=== PATIENT | male | born 1945 | race Caucasian/White ===

== ENCOUNTER 2020-09-08 16:15 | Inpatient (IN) | payer MEDICARE, BC ==
[~2020-09-08] VITALS: Ht 182.9 cm; Wt 78.1 kg
[~2020-09-08 16:15] MED LIST: AMLO-186 PO; ASPI-630 PO; DONE5TAB7 PO; GABA100C81 PO; LISI10TA16 PO; LOPE-101 PO; ROPI0.5T4 PO; SERT25TA PO
[2020-09-08] MEDS ORDERED: MAGNESIUM HYDROXIDE 2,400 MG/30 ML ORAL.SUSP. PO PRN (18:30)
[2020-09-08] MEDS ORDERED: NICOTINE 7MG PATCH. TD PRN (18:30)
[2020-09-08] MEDS ORDERED: MAG HYDROX/AL HYDROX/SIMETH 30 ML ORAL.SUSP PO PRN (18:30)
[2020-09-08] MEDS ORDERED: METHYL SALICYLATE/MENTHOL TOPICAL OINTMENT 57GM TUBE. TP PRN (18:30)
[2020-09-08] MEDS ORDERED: ACETAMINOPHEN 325 MG TABLET PO PRN (18:30)
[2020-09-08 19:02] VITALS: BP 167/68
[2020-09-08] MEDS: rOPINIRole 0.5 MG TABLET. PO SCH (20:08)
[2020-09-08] MEDS: GABAPENTIN 100 MG CAPSULE. PO SCH (20:09)
[2020-09-08] MEDS: DONEPEZIL HCL 5 MG TABLET. PO SCH (20:09)
--- NOTE | 2020-09-08 22:03 | PDOC ---
Exam Note: Raman Note: Please also refer to the separate dictated note~for this date of service dictated separately.~Patient seen individually. Discussed the patient with Nursing staff reviewed the chart.~Reviewed interim history and current functioning. Reviewed vital signs,~Labs/ Radiology~and current medications noted below. Continue current treatment with the changes noted in the dictated addendum note Assessment: Vital Signs/I&O: Vital Signs Date Time Temp Pulse Resp B/P (MAP) Pulse Ox O2 Delivery O2 Flow Rate FiO2 09/08/20 19:02 97.8 60 20 167/68 (101) 97 Current Medications: Meds: Current Medications Medications (Trade) Dose Ordered Sig/Eva Route PRN Reason Start Time Stop Time Status Last Admin Dose Admin Donepezil HCl (Aricept) 5 mg HS PO 09/08/20 21:00 09/08/20 20:09 Gabapentin (Neurontin) 100 mg TID PO 09/08/20 21:00 09/08/20 20:09 Ropinirole HCl (Requip) 0.5 mg HS PO 09/08/20 21:00 09/08/20 20:08 I have reviewed the current psychotropics carefully including drug interactions. Risk benefit ratio favors no change other than as noted in my dictated progress note. LUISANA WAGNER MD Sep 08, 2020 22:03
[2020-09-08] MEDS ORDERED: NICOTINE POLACRILEX GUM 2 MG GUM. BC PRN (22:15)
[2020-09-09 05:25] VITALS: BP 183/76
[2020-09-09] MEDS: GABAPENTIN 100 MG CAPSULE. PO SCH ×3 (08:06→20:51)
[2020-09-09] MEDS: SERTRALINE 25 MG TABLET. PO SCH (08:06)
[2020-09-09] MEDS: LISINOPRIL 10 MG TABLET PO SCH (08:06)
[2020-09-09] MEDS: ASPIRIN CHEWABLE 81 MG TABLET. PO SCH (08:06)
[2020-09-09] MEDS: amLODIPine BESYLATE 5 MG TABLET PO SCH (08:09)
[2020-09-09 12:42] LABS: THYROID STIM HORMONE (TSH) 1.63 uIU/mL (0.358-3.740)
[2020-09-09 15:54] VITALS: BP 177/68
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
[2020-09-09] MEDS: rOPINIRole 0.5 MG TABLET. PO SCH (20:51)
[2020-09-09] MEDS: DIVALPROEX ER 500 MG TAB.ER.24H PO SCH (20:51)
[2020-09-09] MEDS: DONEPEZIL HCL 5 MG TABLET. PO SCH (20:52)
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
--- NOTE | 2020-09-09 22:04 | PDOC ---
Exam Note: Raman Note: Please also refer to the separate dictated note~for this date of service dictated separately.~Patient seen individually. Discussed the patient with Nursing staff reviewed the chart.~Reviewed interim history and current functioning. Reviewed vital signs,~Labs/ Radiology~and current medications noted below. Continue current treatment with the changes noted in the dictated addendum note Assessment: Vital Signs/I&O: Vital Signs Date Time Temp Pulse Resp B/P (MAP) Pulse Ox O2 Delivery O2 Flow Rate FiO2 09/09/20 15:54 97.1 60 18 177/68 (104) 97 Room Air I & O 09/08/20 09/08/20 09/09/20 14:59 22:59 06:59 Intake Total 720 ml Balance 720 ml Labs: Laboratory Tests Test 09/09/20 07:28 D-Dimer (Iliana) 1.00 mg/L (0.00-0.50) H Magnesium Level 2.1 mg/dL (1.8-2.4) Iron Level 132 ug/dL (65-175) Total Iron Binding Capacity 337 ug/dL (250-450) Iron Saturation 39 % (15-34) H Triglycerides Level 129 mg/dL (0-150) Cholesterol Level 139 mg/dL (0-200) LDL Cholesterol, Calculated 67 mg/dL (0-100) VLDL Cholesterol, Calculated 25 mg/dL (0-40) Non-HDL Cholesterol Calculated 92 mg/dL (0-129) HDL Cholesterol 47 mg/dL (40-60) Cholesterol/HDL Ratio 2.0 Thyroid Stimulating Hormone (TSH) 1.630 uIU/mL (0.358-3.740) Current Medications: Meds: Current Medications Medications (Trade) Dose Ordered Sig/Eva Route PRN Reason Start Time Stop Time Status Last Admin Dose Admin Amlodipine Besylate (Norvasc) 5 mg DAILY PO 09/09/20 09:00 09/09/20 08:09 Aspirin (Aspirin Chewable) 81 mg DAILY PO 09/09/20 09:00 09/09/20 08:06 Lisinopril (Prinivil) 10 mg DAILY PO 09/09/20 09:00 09/09/20 08:06 Sertraline HCl (Zoloft) 25 mg DAILY PO 09/09/20 09:00 09/09/20 08:06 Divalproex Sodium (Depakote Er) 500 mg QHS PO 09/09/20 21:00 09/09/20 20:51 I have reviewed the current psychotropics carefully including drug interactions. Risk benefit ratio favors no change other than as noted in my dictated progress note. Diagnosis: Problems: (1) Major depressive disorder with psychotic features (2) Impulse control disorder, unspecified LUISANA WAGNER MD Sep 09, 2020 22:03
[2020-09-10 02:31] LABS: THYROXINE 7.5 ug/dL (4.5-12.0)
[2020-09-10 05:39] LABS: HEMOGLOBIN A1C 5.5 % (4.8-5.6)
[2020-09-10 05:45] VITALS: BP 167/68
[2020-09-10] MEDS: ASPIRIN CHEWABLE 81 MG TABLET. PO SCH (08:02)
[2020-09-10] MEDS: GABAPENTIN 100 MG CAPSULE. PO SCH ×3 (08:02→20:23)
[2020-09-10] MEDS: amLODIPine BESYLATE 5 MG TABLET PO SCH (08:02)
[2020-09-10] MEDS: SERTRALINE 25 MG TABLET. PO SCH (08:02)
[2020-09-10] MEDS: LISINOPRIL 10 MG TABLET PO SCH (08:02)
--- NOTE | 2020-09-10 08:47 | PDOC ---
Exam Note: Raman Note: This is an addendum to Initial Psychiatric Evaluation to correct the error under dictation #[id number]. Correct date of service and admission is 09/08/2020 and date of dictation 09/09/2020. Assessment: Vital Signs/I&O: Vital Signs Date Time Temp Pulse Resp B/P (MAP) Pulse Ox O2 Delivery O2 Flow Rate FiO2 09/10/20 08:02 61 167/68 09/10/20 05:45 97.9 14 98 Room Air I & O 09/09/20 09/09/20 09/10/20 15:00 23:00 07:00 Intake Total 600 ml 600 ml Balance 600 ml 600 ml Current Medications: Meds: Current Medications Medications (Trade) Dose Ordered Sig/Eva Route PRN Reason Start Time Stop Time Status Last Admin Dose Admin Amlodipine Besylate (Norvasc) 5 mg DAILY PO 09/09/20 09:00 09/10/20 08:02 Aspirin (Aspirin Chewable) 81 mg DAILY PO 09/09/20 09:00 09/10/20 08:02 Donepezil HCl (Aricept) 5 mg HS PO 09/08/20 21:00 09/09/20 20:52 Gabapentin (Neurontin) 100 mg TID PO 09/08/20 21:00 09/10/20 08:02 Lisinopril (Prinivil) 10 mg DAILY PO 09/09/20 09:00 09/10/20 08:02 Loperamide HCl (Imodium) 2 mg PRN Q2HRS PRN PO DIARRHEA 09/08/20 18:30 Ropinirole HCl (Requip) 0.5 mg HS PO 09/08/20 21:00 09/09/20 20:51 Sertraline HCl (Zoloft) 25 mg DAILY PO 09/09/20 09:00 09/10/20 08:02 Acetaminophen (Tylenol) 650 mg PRN Q6HRS PRN PO MILD PAIN / TEMP > 100.3'F 09/08/20 18:30 Multi-Ingredient Ointment (Analgesic [place]) 1 keerthi PRN QID PRN TP MUSCLE PAIN 09/08/20 18:30 Al Hydroxide/Mg Hydroxide (Mylanta Plus Xs) 15 ml PRN AFTMEALHC PRN PO DYSPEPSIA 09/08/20 18:30 Magnesium Hydroxide (Milk Of Magnesia) 2,400 mg PRN QHS PRN PO CONSTIPATION 09/08/20 18:30 Nicotine (Nicoderm Cq 7mg Patch) 1 patch DAILY PRN TD SMOKING CESSATION 09/08/20 18:30 09/08/20 22:07 DC Nicotine Polacrilex (Nicorette Gum) 2 mg PRN Q1HR PRN BC SMOKING CESSATION 09/08/20 22:15 Divalproex Sodium (Depakote Er) 500 mg QHS PO 09/09/20 21:00 09/09/20 20:51 Current Medications Medications (Trade) Dose Ordered Sig/Eva Route PRN Reason Start Time Stop Time Status Last Admin Dose Admin Amlodipine Besylate (Norvasc) 5 mg DAILY PO 09/09/20 09:00 09/10/20 08:02 Aspirin (Aspirin Chewable) 81 mg DAILY PO 09/09/20 09:00 09/10/20 08:02 Lisinopril (Prinivil) 10 mg DAILY PO 09/09/20 09:00 09/10/20 08:02 Sertraline HCl (Zoloft) 25 mg DAILY PO 09/09/20 09:00 09/10/20 08:02 Divalproex Sodium (Depakote Er) 500 mg QHS PO 09/09/20 21:00 09/09/20 20:51 I have reviewed the current psychotropics carefully including drug interactions. Risk benefit ratio favors no change other than as noted in my dictated progress note. Diagnosis: Problems: (1) Impulse control disorder, unspecified (2) Major depressive disorder with psychotic features (3) Intermittent explosive disorder LUISANA WAGNER MD Sep 10, 2020 08:47
--- NOTE | 2020-09-10 09:03 | PDOC ---
Exam Note: Raman Note: This note is a late entry for 09/09/2020 covers elements not covered in my initial note. Subjective: The patient was seen individually in the evening of 09/09/2020 with Doreen DANIEL, discussed and reviewed the chart. He slept 6-3/4 hours previous night. The patient remains anxious, wanting to be discharged. Nursing staff have addressed this with him and so have I about reasons prompting admission that we are initiating changes in his psychotropics to assist with his marked mood lability and he was agreeable to it. Review of Systems: Gait unsteady with walker. No CV, , pulmonary, eye system symptoms on review. Mental Status Exam: The patient is reasonably oriented. Speech is coherent. Abstraction fair. Computation impaired. Language function intact. Attention span short. Mood and affect somewhat anxious, labile but improved. Laboratory Data: Reviewed. Impression: Intermittent explosive disorder. Major depressive disorder. Anxiety disorder unspecified. Plan: Start Depakote ER 500 mg p.o. h.s. Check CBC, CMP, valproic acid level in 3 days. Maintain Neurontin, ReQuip, Aricept, and Zoloft unchanged for now. We may consider increasing Zoloft in due course. Assessment: Vital Signs/I&O: Vital Signs Date Time Temp Pulse Resp B/P (MAP) Pulse Ox O2 Delivery O2 Flow Rate FiO2 09/10/20 08:02 61 167/68 09/10/20 05:45 97.9 14 98 Room Air I & O 09/09/20 09/09/20 09/10/20 14:59 22:59 06:59 Intake Total 600 ml 600 ml Balance 600 ml 600 ml Current Medications: Meds: Current Medications Medications (Trade) Dose Ordered Sig/Eva Route PRN Reason Start Time Stop Time Status Last Admin Dose Admin Amlodipine Besylate (Norvasc) 5 mg DAILY PO 09/09/20 09:00 09/10/20 08:02 Aspirin (Aspirin Chewable) 81 mg DAILY PO 09/09/20 09:00 09/10/20 08:02 Donepezil HCl (Aricept) 5 mg HS PO 09/08/20 21:00 09/09/20 20:52 Gabapentin (Neurontin) 100 mg TID PO 09/08/20 21:00 09/10/20 08:02 Lisinopril (Prinivil) 10 mg DAILY PO 09/09/20 09:00 09/10/20 08:02 Loperamide HCl (Imodium) 2 mg PRN Q2HRS PRN PO DIARRHEA 09/08/20 18:30 Ropinirole HCl (Requip) 0.5 mg HS PO 09/08/20 21:00 09/09/20 20:51 Sertraline HCl (Zoloft) 25 mg DAILY PO 09/09/20 09:00 09/10/20 08:02 Acetaminophen (Tylenol) 650 mg PRN Q6HRS PRN PO MILD PAIN / TEMP > 100.3'F 09/08/20 18:30 Multi-Ingredient Ointment (Analgesic [place]) 1 keerthi PRN QID PRN TP MUSCLE PAIN 09/08/20 18:30 Al Hydroxide/Mg Hydroxide (Mylanta Plus Xs) 15 ml PRN AFTMEALHC PRN PO DYSPEPSIA 09/08/20 18:30 Magnesium Hydroxide (Milk Of Magnesia) 2,400 mg PRN QHS PRN PO CONSTIPATION 09/08/20 18:30 Nicotine (Nicoderm Cq 7mg Patch) 1 patch DAILY PRN TD SMOKING CESSATION 09/08/20 18:30 09/08/20 22:07 DC Nicotine Polacrilex (Nicorette Gum) 2 mg PRN Q1HR PRN BC SMOKING CESSATION 09/08/20 22:15 Divalproex Sodium (Depakote Er) 500 mg QHS PO 09/09/20 21:00 09/09/20 20:51 Current Medications Medications (Trade) Dose Ordered Sig/Eva Route PRN Reason Start Time Stop Time Status Last Admin Dose Admin Divalproex Sodium (Depakote Er) 500 mg QHS PO 09/09/20 21:00 09/09/20 20:51 I have reviewed the current psychotropics carefully including drug interactions. Risk benefit ratio favors no change other than as noted in my dictated progress note. Diagnosis: Problems: (1) Impulse control disorder, unspecified (2) Major depressive disorder with psychotic features (3) Intermittent explosive disorder LUISANA WAGNER MD Sep 10, 2020 09:03
[2020-09-10 15:19] VITALS: BP 137/70
[2020-09-10] MEDS: DONEPEZIL HCL 5 MG TABLET. PO SCH (20:23)
[2020-09-10] MEDS: rOPINIRole 0.5 MG TABLET. PO SCH (20:23)
[2020-09-10] MEDS: DIVALPROEX ER 500 MG TAB.ER.24H PO SCH (20:23)
--- NOTE | 2020-09-10 22:05 | PDOC ---
Exam Note: Raman Note: Please also refer to the separate dictated note~for this date of service dictated separately.~Patient seen individually. Discussed the patient with Nursing staff reviewed the chart.~Reviewed interim history and current functioning. Reviewed vital signs,~Labs/ Radiology~and current medications noted below. Continue current treatment with the changes noted in the dictated addendum note Assessment: Vital Signs/I&O: Vital Signs Date Time Temp Pulse Resp B/P (MAP) Pulse Ox O2 Delivery O2 Flow Rate FiO2 09/10/20 15:19 98.0 62 20 137/70 (92) 98 09/10/20 05:45 Room Air I & O 09/09/20 09/09/20 09/10/20 15:00 23:00 07:00 Intake Total 600 ml 600 ml Balance 600 ml 600 ml Current Medications: Meds: Current Medications Medications (Trade) Dose Ordered Sig/Eva Route PRN Reason Start Time Stop Time Status Last Admin Dose Admin Amlodipine Besylate (Norvasc) 5 mg DAILY PO 09/09/20 09:00 09/10/20 08:02 Aspirin (Aspirin Chewable) 81 mg DAILY PO 09/09/20 09:00 09/10/20 08:02 Donepezil HCl (Aricept) 5 mg HS PO 09/08/20 21:00 09/10/20 20:23 Gabapentin (Neurontin) 100 mg TID PO 09/08/20 21:00 09/10/20 20:23 Lisinopril (Prinivil) 10 mg DAILY PO 09/09/20 09:00 09/10/20 08:02 Loperamide HCl (Imodium) 2 mg PRN Q2HRS PRN PO DIARRHEA 09/08/20 18:30 Ropinirole HCl (Requip) 0.5 mg HS PO 09/08/20 21:00 09/10/20 20:23 Sertraline HCl (Zoloft) 25 mg DAILY PO 09/09/20 09:00 09/10/20 08:02 Acetaminophen (Tylenol) 650 mg PRN Q6HRS PRN PO MILD PAIN / TEMP > 100.3'F 09/08/20 18:30 Multi-Ingredient Ointment (Analgesic [place]) 1 keerthi PRN QID PRN TP MUSCLE PAIN 09/08/20 18:30 Al Hydroxide/Mg Hydroxide (Mylanta Plus Xs) 15 ml PRN AFTMEALHC PRN PO DYSPEPSIA 09/08/20 18:30 Magnesium Hydroxide (Milk Of Magnesia) 2,400 mg PRN QHS PRN PO CONSTIPATION 09/08/20 18:30 Nicotine (Nicoderm Cq 7mg Patch) 1 patch DAILY PRN TD SMOKING CESSATION 09/08/20 18:30 09/08/20 22:07 DC Nicotine Polacrilex (Nicorette Gum) 2 mg PRN Q1HR PRN BC SMOKING CESSATION 09/08/20 22:15 Divalproex Sodium (Depakote Er) 500 mg QHS PO 09/09/20 21:00 09/10/20 20:23 I have reviewed the current psychotropics carefully including drug interactions. Risk benefit ratio favors no change other than as noted in my dictated progress note. Diagnosis: Problems: (1) Violent behavior (2) Impulse control disorder, unspecified (3) Major depressive disorder with psychotic features LUISANA WAGNER MD Sep 10, 2020 22:05
[2020-09-11 06:03] VITALS: BP 159/65
--- NOTE | 2020-09-11 08:35 | PDOC ---
Exam Note: Raman Note: This note is a late entry for 09/10/2020 covers elements not covered in my initial note. Subjective: The patient was seen individually in the evening of 09/10/2020 with Idalia DANIEL, discussed and reviewed the chart. He slept 8-1/2 hours previous night. Overall the patient has been calm, pleasant, compliant with his medications. He often isolates in his room. He is tolerating Depakote ER 500 mg p.o. h.s. and CBC, CMP, valproic acid level are awaited on 09/12 following which we will adjust it further. Review of Systems: Gait unsteady with walker. No CV, , pulmonary, eye system symptoms on review. Mental Status Exam: The patient is reasonably oriented. Speech is coherent. Abstraction fair. Computation impaired. Language function intact. Attention span short. Mood and affect somewhat anxious. Laboratory Data: Reviewed. Impression: Intermittent explosive disorder. Major depressive disorder. Anxiety disorder unspecified. Plan: Adjust the Depakote to reach therapeutic level. Maintain Aricept, Zoloft, gabapentin. I had a lengthy discussion with the patient and explained his diagnoses and rationale for treatment and he seemed to understand. Assessment: Vital Signs/I&O: Vital Signs Date Time Temp Pulse Resp B/P (MAP) Pulse Ox O2 Delivery O2 Flow Rate FiO2 09/11/20 06:03 98.6 61 18 159/65 (96) 95 09/10/20 05:45 Room Air I & O 09/10/20 09/10/20 09/11/20 14:59 22:59 06:59 Intake Total 1080 ml 480 ml Balance 1080 ml 480 ml Current Medications: Meds: Current Medications Medications (Trade) Dose Ordered Sig/Eva Route PRN Reason Start Time Stop Time Status Last Admin Dose Admin Amlodipine Besylate (Norvasc) 5 mg DAILY PO 09/09/20 09:00 09/10/20 08:02 Aspirin (Aspirin Chewable) 81 mg DAILY PO 09/09/20 09:00 09/10/20 08:02 Donepezil HCl (Aricept) 5 mg HS PO 09/08/20 21:00 09/10/20 20:23 Gabapentin (Neurontin) 100 mg TID PO 09/08/20 21:00 09/10/20 20:23 Lisinopril (Prinivil) 10 mg DAILY PO 09/09/20 09:00 09/10/20 08:02 Loperamide HCl (Imodium) 2 mg PRN Q2HRS PRN PO DIARRHEA 09/08/20 18:30 Ropinirole HCl (Requip) 0.5 mg HS PO 09/08/20 21:00 09/10/20 20:23 Sertraline HCl (Zoloft) 25 mg DAILY PO 09/09/20 09:00 09/10/20 08:02 Acetaminophen (Tylenol) 650 mg PRN Q6HRS PRN PO MILD PAIN / TEMP > 100.3'F 09/08/20 18:30 Multi-Ingredient Ointment (Analgesic [place]) 1 keerthi PRN QID PRN TP MUSCLE PAIN 09/08/20 18:30 Al Hydroxide/Mg Hydroxide (Mylanta Plus Xs) 15 ml PRN AFTMEALHC PRN PO DYSPEPSIA 09/08/20 18:30 Magnesium Hydroxide (Milk Of Magnesia) 2,400 mg PRN QHS PRN PO CONSTIPATION 09/08/20 18:30 Nicotine (Nicoderm Cq 7mg Patch) 1 patch DAILY PRN TD SMOKING CESSATION 09/08/20 18:30 09/08/20 22:07 DC Nicotine Polacrilex (Nicorette Gum) 2 mg PRN Q1HR PRN BC SMOKING CESSATION 09/08/20 22:15 Divalproex Sodium (Depakote Er) 500 mg QHS PO 09/09/20 21:00 09/10/20 20:23 I have reviewed the current psychotropics carefully including drug interactions. Risk benefit ratio favors no change other than as noted in my dictated progress note. Diagnosis: Problems: (1) Impulse control disorder, unspecified (2) Major depressive disorder with psychotic features (3) Dementia with behavioral disturbance (4) Intermittent explosive disorder LUISANA WAGNER MD Sep 11, 2020 08:35
[2020-09-11] MEDS: GABAPENTIN 100 MG CAPSULE. PO SCH ×3 (08:51→20:55)
[2020-09-11] MEDS: SERTRALINE 25 MG TABLET. PO SCH (08:52)
[2020-09-11] MEDS: ASPIRIN CHEWABLE 81 MG TABLET. PO SCH (08:52)
[2020-09-11] MEDS: LISINOPRIL 10 MG TABLET PO SCH (08:52)
[2020-09-11] MEDS: amLODIPine BESYLATE 5 MG TABLET PO SCH (08:53)
[2020-09-11 15:30] VITALS: BP 170/73
[2020-09-11] MEDS: CEFDINIR 300 MG CAPSULE PO SCH (20:55)
[2020-09-11] MEDS: DIVALPROEX ER 500 MG TAB.ER.24H PO SCH (20:55)
[2020-09-11] MEDS: DONEPEZIL HCL 5 MG TABLET. PO SCH (20:55)
[2020-09-11] MEDS: risperiDONE 0.25 MG TABLET. PO SCH (20:55)
[2020-09-11] MEDS: rOPINIRole 0.5 MG TABLET. PO SCH (20:56)
[2020-09-11] MEDS: LACTOBACILLUS RHAMNOSUS GG 1 CAPSULE. PO SCH (21:00)
--- NOTE | 2020-09-11 21:52 | PDOC ---
Exam Note: Raman Note: Please also refer to the separate dictated note~for this date of service dictated separately.~Patient seen individually. Discussed the patient with Nursing staff reviewed the chart.~Reviewed interim history and current functioning. Reviewed vital signs,~Labs/ Radiology~and current medications noted below. Continue current treatment with the changes noted in the dictated addendum note Assessment: Vital Signs/I&O: Vital Signs Date Time Temp Pulse Resp B/P (MAP) Pulse Ox O2 Delivery O2 Flow Rate FiO2 09/11/20 15:30 97.8 58 16 170/73 (105) 98 09/10/20 05:45 Room Air I & O 09/10/20 09/10/20 09/11/20 14:59 22:59 06:59 Intake Total 1080 ml 480 ml Balance 1080 ml 480 ml Current Medications: Meds: Current Medications Medications (Trade) Dose Ordered Sig/Eva Route PRN Reason Start Time Stop Time Status Last Admin Dose Admin Amlodipine Besylate (Norvasc) 5 mg DAILY PO 09/09/20 09:00 09/11/20 08:53 Aspirin (Aspirin Chewable) 81 mg DAILY PO 09/09/20 09:00 09/11/20 08:52 Donepezil HCl (Aricept) 5 mg HS PO 09/08/20 21:00 09/11/20 20:55 Gabapentin (Neurontin) 100 mg TID PO 09/08/20 21:00 09/11/20 20:55 Lisinopril (Prinivil) 10 mg DAILY PO 09/09/20 09:00 09/11/20 08:52 Loperamide HCl (Imodium) 2 mg PRN Q2HRS PRN PO DIARRHEA 09/08/20 18:30 Ropinirole HCl (Requip) 0.5 mg HS PO 09/08/20 21:00 09/11/20 20:56 Sertraline HCl (Zoloft) 25 mg DAILY PO 09/09/20 09:00 09/11/20 08:52 Acetaminophen (Tylenol) 650 mg PRN Q6HRS PRN PO MILD PAIN / TEMP > 100.3'F 09/08/20 18:30 Multi-Ingredient Ointment (Analgesic [place]) 1 keerthi PRN QID PRN TP MUSCLE PAIN 09/08/20 18:30 Al Hydroxide/Mg Hydroxide (Mylanta Plus Xs) 15 ml PRN AFTMEALHC PRN PO DYSPEPSIA 09/08/20 18:30 Magnesium Hydroxide (Milk Of Magnesia) 2,400 mg PRN QHS PRN PO CONSTIPATION 09/08/20 18:30 Nicotine (Nicoderm Cq 7mg Patch) 1 patch DAILY PRN TD SMOKING CESSATION 09/08/20 18:30 09/08/20 22:07 DC Nicotine Polacrilex (Nicorette Gum) 2 mg PRN Q1HR PRN BC SMOKING CESSATION 09/08/20 22:15 Divalproex Sodium (Depakote Er) 500 mg QHS PO 09/09/20 21:00 09/11/20 20:55 Risperidone (RisperDAL) 0.25 mg QHS PO 09/11/20 21:00 09/11/20 20:55 Cefdinir (Omnicef) 300 mg BID PO 09/11/20 21:00 09/17/20 22:00 09/11/20 20:55 Lactobacillus Rhamnosus (Culturelle) 1 cap BID PO 09/11/20 21:00 09/11/20 21:00 Current Medications Medications (Trade) Dose Ordered Sig/Eva Route PRN Reason Start Time Stop Time Status Last Admin Dose Admin Risperidone (RisperDAL) 0.25 mg QHS PO 09/11/20 21:00 09/11/20 20:55 Cefdinir (Omnicef) 300 mg BID PO 09/11/20 21:00 09/17/20 22:00 09/11/20 20:55 Lactobacillus Rhamnosus (Culturelle) 1 cap BID PO 09/11/20 21:00 09/11/20 21:00 I have reviewed the current psychotropics carefully including drug interactions. Risk benefit ratio favors no change other than as noted in my dictated progress note. Diagnosis: Problems: (1) Impulse control disorder, unspecified (2) Major depressive disorder with psychotic features (3) Dementia with behavioral disturbance (4) Intermittent explosive disorder LUISANA WAGNER MD Sep 11, 2020 21:52
[2020-09-12 06:13] VITALS: BP 162/79
[2020-09-12 08:37] LABS: BASO % 1 % (0-3); EOS # 0.1 x10^3/uL (0.0-0.7); EOS % 2 % (0-3); HEMOGLOBIN 15.3 g/dL (13.0-17.5); LYMPH # 1.6 x10^3/uL (1.0-4.8); LYMPH % 22 % (24-48); MEAN CORPUSCULAR HEMOGLOBIN 32 pg (25-35); MEAN CORPUSCULAR HGB CONC 34 g/dL (31-37); MEAN CORPUSCULAR VOLUME 95 fL (79-100); MONO # 0.6 x10^3/uL (0.0-1.1); MONO % 9 % (0-9); NEUT # 4.9 x10^3uL (1.8-7.7); NEUT % 67 % (31-73); PLATELET COUNT 272 x10^3/uL (140-400); RED BLOOD COUNT 4.75 x10^6/uL (4.30-5.70); RED CELL DISTRIBUTION WIDTH 14.4 % (11.5-14.5); WHITE BLOOD COUNT 7.3 x10^3/uL (4.0-11.0)
[2020-09-12] MEDS: CEFDINIR 300 MG CAPSULE PO SCH ×2 (08:44→20:14)
[2020-09-12] MEDS: SERTRALINE 25 MG TABLET. PO SCH (08:44)
[2020-09-12] MEDS: LISINOPRIL 10 MG TABLET PO SCH (08:44)
[2020-09-12] MEDS: LACTOBACILLUS RHAMNOSUS GG 1 CAPSULE. PO SCH ×2 (08:44→20:14)
[2020-09-12] MEDS: GABAPENTIN 100 MG CAPSULE. PO SCH ×3 (08:44→20:14)
[2020-09-12] MEDS: ASPIRIN CHEWABLE 81 MG TABLET. PO SCH (08:44)
[2020-09-12] MEDS: amLODIPine BESYLATE 5 MG TABLET PO SCH (08:45)
[2020-09-12 15:50] VITALS: BP 171/67
[2020-09-12 16:52] LABS: VAL ACID 25 mcg/mL (50-100)
[2020-09-12 17:05] LABS: ALBUMIN 3.8 g/dL (3.4-5.0); ALBUMIN/GLOBULIN RATIO 1.2 (1.0-1.7); CALCIUM 8.6 mg/dL (8.5-10.1); CREATININE 0.8 mg/dL (0.7-1.3); GFR 94.5; POTASSIUM 4.3 mmol/L (3.5-5.1); TOTAL BILIRUBIN 0.8 mg/dL (0.2-1.0); TOTAL PROTEIN 6.9 g/dL (6.4-8.2)
[2020-09-12] MEDS: rOPINIRole 0.5 MG TABLET. PO SCH (20:14)
[2020-09-12] MEDS: DIVALPROEX ER 500 MG TAB.ER.24H PO SCH (20:14)
[2020-09-12] MEDS: DONEPEZIL HCL 5 MG TABLET. PO SCH (20:14)
[2020-09-12] MEDS: risperiDONE 0.25 MG TABLET. PO SCH (20:14)
--- NOTE | 2020-09-12 21:59 | PDOC ---
Exam Note: Raman Note: Please also refer to the separate dictated note~for this date of service dictated separately.~Patient seen individually. Discussed the patient with Nursing staff reviewed the chart.~Reviewed interim history and current functioning. Reviewed vital signs,~Labs/ Radiology~and current medications noted below. Continue current treatment with the changes noted in the dictated addendum note Assessment: Vital Signs/I&O: Vital Signs Date Time Temp Pulse Resp B/P (MAP) Pulse Ox O2 Delivery O2 Flow Rate FiO2 09/12/20 15:50 97.7 56 18 171/67 (101) 100 09/10/20 05:45 Room Air I & O 09/11/20 09/11/20 09/12/20 15:00 23:00 07:00 Intake Total 720 ml 240 ml 240 ml Balance 720 ml 240 ml 240 ml Labs: Laboratory Tests Test 09/12/20 07:21 White Blood Count 7.3 x10^3/uL (4.0-11.0) Red Blood Count 4.75 x10^6/uL (4.30-5.70) Hemoglobin 15.3 g/dL (13.0-17.5) Hematocrit 45.0 % (39.0-53.0) Mean Corpuscular Volume 95 fL (79-100) Mean Corpuscular Hemoglobin 32 pg (25-35) Mean Corpuscular Hemoglobin Concent 34 g/dL (31-37) Red Cell Distribution Width 14.4 % (11.5-14.5) Platelet Count 272 x10^3/uL (140-400) Neutrophils (%) (Auto) 67 % (31-73) Lymphocytes (%) (Auto) 22 % (24-48) L Monocytes (%) (Auto) 9 % (0-9) Eosinophils (%) (Auto) 2 % (0-3) Basophils (%) (Auto) 1 % (0-3) Neutrophils # (Auto) 4.9 x10^3uL (1.8-7.7) Lymphocytes # (Auto) 1.6 x10^3/uL (1.0-4.8) Monocytes # (Auto) 0.6 x10^3/uL (0.0-1.1) Eosinophils # (Auto) 0.1 x10^3/uL (0.0-0.7) Basophils # (Auto) 0.0 x10^3/uL (0.0-0.2) Sodium Level 144 mmol/L (136-145) Potassium Level 4.3 mmol/L (3.5-5.1) Chloride Level 107 mmol/L (98-107) Carbon Dioxide Level 27 mmol/L (21-32) Anion Gap 10 (6-14) Blood Urea Nitrogen 11 mg/dL (8-26) Creatinine 0.8 mg/dL (0.7-1.3) Estimated GFR (Cockcroft-Gault) 94.5 BUN/Creatinine Ratio 14 (6-20) Glucose Level 74 mg/dL (70-99) Calcium Level 8.6 mg/dL (8.5-10.1) Total Bilirubin 0.8 mg/dL (0.2-1.0) Aspartate Amino Transferase (AST) 23 U/L (15-37) Alanine Aminotransferase (ALT) 26 U/L (16-63) Alkaline Phosphatase 67 U/L (46-116) Total Protein 6.9 g/dL (6.4-8.2) Albumin 3.8 g/dL (3.4-5.0) Albumin/Globulin Ratio 1.2 (1.0-1.7) Valproic Acid Level 25 mcg/mL (50-100) L Valproic Acid Last Dose Date 09/11/20 Valproic Acid Last Dose Time 2100 Current Medications: Meds: Laboratory Tests Test 09/12/20 07:21 White Blood Count 7.3 x10^3/uL Red Blood Count 4.75 x10^6/uL Hemoglobin 15.3 g/dL Hematocrit 45.0 % Mean Corpuscular Volume 95 fL Mean Corpuscular Hemoglobin 32 pg Mean Corpuscular Hemoglobin Concent 34 g/dL Red Cell Distribution Width 14.4 % Platelet Count 272 x10^3/uL Neutrophils (%) (Auto) 67 % Lymphocytes (%) (Auto) 22 % Monocytes (%) (Auto) 9 % Eosinophils (%) (Auto) 2 % Basophils (%) (Auto) 1 % Neutrophils # (Auto) 4.9 x10^3uL Lymphocytes # (Auto) 1.6 x10^3/uL Monocytes # (Auto) 0.6 x10^3/uL Eosinophils # (Auto) 0.1 x10^3/uL Basophils # (Auto) 0.0 x10^3/uL Sodium Level 144 mmol/L Potassium Level 4.3 mmol/L Chloride Level 107 mmol/L Carbon Dioxide Level 27 mmol/L Anion Gap 10 Blood Urea Nitrogen 11 mg/dL Creatinine 0.8 mg/dL Estimated GFR (Cockcroft-Gault) 94.5 BUN/Creatinine Ratio 14 Glucose Level 74 mg/dL Calcium Level 8.6 mg/dL Total Bilirubin 0.8 mg/dL Aspartate Amino Transf (AST/SGOT) 23 U/L Alanine Aminotransferase (ALT/SGPT) 26 U/L Alkaline Phosphatase 67 U/L Total Protein 6.9 g/dL Albumin 3.8 g/dL Albumin/Globulin Ratio 1.2 Valproic Acid (Depakene) Level 25 mcg/mL Valproic Acid Last Dose Date 09/11/20 Valproic Acid Last Dose Time 2100 Current Medications Medications (Trade) Dose Ordered Sig/Eva Route PRN Reason Start Time Stop Time Status Last Admin Dose Admin Amlodipine Besylate (Norvasc) 5 mg DAILY PO 09/09/20 09:00 09/12/20 08:45 Aspirin (Aspirin Chewable) 81 mg DAILY PO 09/09/20 09:00 09/12/20 08:44 Donepezil HCl (Aricept) 5 mg HS PO 09/08/20 21:00 09/12/20 20:14 Gabapentin (Neurontin) 100 mg TID PO 09/08/20 21:00 09/12/20 20:14 Lisinopril (Prinivil) 10 mg DAILY PO 09/09/20 09:00 09/12/20 08:44 Loperamide HCl (Imodium) 2 mg PRN Q2HRS PRN PO DIARRHEA 09/08/20 18:30 Ropinirole HCl (Requip) 0.5 mg HS PO 09/08/20 21:00 09/12/20 20:14 Sertraline HCl (Zoloft) 25 mg DAILY PO 09/09/20 09:00 09/12/20 08:44 Acetaminophen (Tylenol) 650 mg PRN Q6HRS PRN PO MILD PAIN / TEMP > 100.3'F 09/08/20 18:30 Multi-Ingredient Ointment (Analgesic [place]) 1 keerthi PRN QID PRN TP MUSCLE PAIN 09/08/20 18:30 Al Hydroxide/Mg Hydroxide (Mylanta Plus Xs) 15 ml PRN AFTMEALHC PRN PO DYSPEPSIA 09/08/20 18:30 Magnesium Hydroxide (Milk Of Magnesia) 2,400 mg PRN QHS PRN PO CONSTIPATION 09/08/20 18:30 Nicotine (Nicoderm Cq 7mg Patch) 1 patch DAILY PRN TD SMOKING CESSATION 09/08/20 18:30 09/08/20 22:07 DC Nicotine Polacrilex (Nicorette Gum) 2 mg PRN Q1HR PRN BC SMOKING CESSATION 09/08/20 22:15 Divalproex Sodium (Depakote Er) 500 mg QHS PO 09/09/20 21:00 09/12/20 20:14 Risperidone (RisperDAL) 0.25 mg QHS PO 09/11/20 21:00 09/12/20 20:14 Cefdinir (Omnicef) 300 mg BID PO 09/11/20 21:00 09/17/20 22:00 09/12/20 20:14 Lactobacillus Rhamnosus (Culturelle) 1 cap BID PO 09/11/20 21:00 09/12/20 20:14 I have reviewed the current psychotropics carefully including drug interactions. Risk benefit ratio favors no change other than as noted in my dictated progress note. Diagnosis: Problems: (1) Impulse control disorder, unspecified (2) Major depressive disorder with psychotic features (3) Dementia with behavioral disturbance (4) Intermittent explosive disorder LUISANA WAGNER MD Sep 12, 2020 21:59
[2020-09-13 05:46] VITALS: BP 164/71
--- NOTE | 2020-09-13 08:00 | PDOC ---
Exam Note: Raman Note: This note is a late entry for 09/11/2020 covers elements not covered in my initial note. Subjective: The patient was reviewed in the morning of 09/11/2020 for a treatment team meeting with Dariana Conde, Fabi Chiu (social media senior associate), Tash Pedersen, Herpetology Teacher, Coco, activity therapy and Mariaelena DANIEL, discussed and reviewed the chart. He slept 6-3/4 hours previous night. The patient has been calm, alert and oriented x4. No aggression noted. Family visited him and looking for assisted living for him. Previously he had been driving himself at home. He has been somewhat paranoid and we will start him on Risperdal 0.[address] head will be deferred to Dr. Graham and we discussed for the family to be informed to remove all guns from the home. Review of Systems: Ambulation impaired with walker. No CV, , pulmonary, eye system symptoms on review. Mental Status Exam: The patient is reasonably oriented. Speech is coherent. Abstraction fair. Computation impaired. Language function intact. Attention span short. Mood and affect somewhat anxious. Laboratory Data: Reviewed. Impression: Intermittent explosive disorder. Major depressive disorder. Anxiety disorder unspecified. Plan: Start Risperdal as noted above. Check valproic acid level on 09/12. Adjust to reach therapeutic level. Rest unchanged for now. Assessment: Vital Signs/I&O: Vital Signs Date Time Temp Pulse Resp B/P (MAP) Pulse Ox O2 Delivery O2 Flow Rate FiO2 09/13/20 05:46 97.2 63 18 164/71 (102) 97 09/10/20 05:45 Room Air I & O 09/12/20 09/12/20 09/13/20 14:59 22:59 06:59 Intake Total 720 ml 360 ml 240 ml Balance 720 ml 360 ml 240 ml Current Medications: Meds: Current Medications Medications (Trade) Dose Ordered Sig/Eva Route PRN Reason Start Time Stop Time Status Last Admin Dose Admin Amlodipine Besylate (Norvasc) 5 mg DAILY PO 09/09/20 09:00 09/12/20 08:45 Aspirin (Aspirin Chewable) 81 mg DAILY PO 09/09/20 09:00 09/12/20 08:44 Donepezil HCl (Aricept) 5 mg HS PO 09/08/20 21:00 09/12/20 20:14 Gabapentin (Neurontin) 100 mg TID PO 09/08/20 21:00 09/12/20 20:14 Lisinopril (Prinivil) 10 mg DAILY PO 09/09/20 09:00 09/12/20 08:44 Loperamide HCl (Imodium) 2 mg PRN Q2HRS PRN PO DIARRHEA 09/08/20 18:30 Ropinirole HCl (Requip) 0.5 mg HS PO 09/08/20 21:00 09/12/20 20:14 Sertraline HCl (Zoloft) 25 mg DAILY PO 09/09/20 09:00 09/12/20 08:44 Acetaminophen (Tylenol) 650 mg PRN Q6HRS PRN PO MILD PAIN / TEMP > 100.3'F 09/08/20 18:30 Multi-Ingredient Ointment (Analgesic [place]) 1 keerthi PRN QID PRN TP MUSCLE PAIN 09/08/20 18:30 Al Hydroxide/Mg Hydroxide (Mylanta Plus Xs) 15 ml PRN AFTMEALHC PRN PO DYSPEPSIA 09/08/20 18:30 Magnesium Hydroxide (Milk Of Magnesia) 2,400 mg PRN QHS PRN PO CONSTIPATION 09/08/20 18:30 Nicotine (Nicoderm Cq 7mg Patch) 1 patch DAILY PRN TD SMOKING CESSATION 09/08/20 18:30 09/08/20 22:07 DC Nicotine Polacrilex (Nicorette Gum) 2 mg PRN Q1HR PRN BC SMOKING CESSATION 09/08/20 22:15 Divalproex Sodium (Depakote Er) 500 mg QHS PO 09/09/20 21:00 09/12/20 22:01 DC 09/12/20 20:14 Risperidone (RisperDAL) 0.25 mg QHS PO 09/11/20 21:00 09/12/20 20:14 Cefdinir (Omnicef) 300 mg BID PO 09/11/20 21:00 09/17/20 22:00 09/12/20 20:14 Lactobacillus Rhamnosus (Culturelle) 1 cap BID PO 09/11/20 21:00 09/12/20 20:14 Divalproex Sodium (Depakote Er) 1,000 mg QHS PO 09/13/20 21:00 I have reviewed the current psychotropics carefully including drug interactions. Risk benefit ratio favors no change other than as noted in my dictated progress note. Diagnosis: Problems: (1) Impulse control disorder, unspecified (2) Major depressive disorder with psychotic features (3) Dementia with behavioral disturbance LUISANA WAGNER MD Sep 13, 2020 08:00
--- NOTE | 2020-09-13 08:17 | PDOC ---
Exam Note: Raman Note: This note is a late entry for 09/12/2020 covers elements not covered in my initial note. Subjective: The patient was seen individually in the evening of 09/12/2020 with Mariaelena DANIEL, discussed and reviewed the chart. He slept 5-1/4 hours previous night. Overall the patient has done better. No aggression or disruptive behaviors noted. Family are looking for placement options. Valproic acid level today is 25 on Depakote ER 500 mg h.s. We will increase to 1000 mg h.s. Check CBC, CMP, valproic acid level in 3 days. Review of Systems: Ambulation impaired with walker. No CV, , pulmonary, eye system symptoms on review. Mental Status Exam: The patient is reasonably oriented. Speech is coherent. Abstraction fair. Computation impaired. Language function intact. Attention span short. Mood and affect somewhat anxious. Laboratory Data: Reviewed. Impression: Intermittent explosive disorder. Major depressive disorder. Anxiety disorder unspecified. Plan: Valproic acid level today is 25 on Depakote ER 500 mg h.s. We will increase to 1000 mg h.s. Check CBC, CMP, valproic acid level in 3 days. Rest unchanged for now. Assessment: Vital Signs/I&O: Vital Signs Date Time Temp Pulse Resp B/P (MAP) Pulse Ox O2 Delivery O2 Flow Rate FiO2 09/13/20 05:46 97.2 63 18 164/71 (102) 97 09/10/20 05:45 Room Air I & O 09/12/20 09/12/20 09/13/20 15:00 23:00 07:00 Intake Total 720 ml 360 ml 240 ml Balance 720 ml 360 ml 240 ml Current Medications: Meds: Current Medications Medications (Trade) Dose Ordered Sig/Eva Route PRN Reason Start Time Stop Time Status Last Admin Dose Admin Amlodipine Besylate (Norvasc) 5 mg DAILY PO 09/09/20 09:00 09/12/20 08:45 Aspirin (Aspirin Chewable) 81 mg DAILY PO 09/09/20 09:00 09/12/20 08:44 Donepezil HCl (Aricept) 5 mg HS PO 09/08/20 21:00 09/12/20 20:14 Gabapentin (Neurontin) 100 mg TID PO 09/08/20 21:00 09/12/20 20:14 Lisinopril (Prinivil) 10 mg DAILY PO 09/09/20 09:00 09/12/20 08:44 Loperamide HCl (Imodium) 2 mg PRN Q2HRS PRN PO DIARRHEA 09/08/20 18:30 Ropinirole HCl (Requip) 0.5 mg HS PO 09/08/20 21:00 09/12/20 20:14 Sertraline HCl (Zoloft) 25 mg DAILY PO 09/09/20 09:00 09/12/20 08:44 Acetaminophen (Tylenol) 650 mg PRN Q6HRS PRN PO MILD PAIN / TEMP > 100.3'F 09/08/20 18:30 Multi-Ingredient Ointment (Analgesic [place]) 1 keerthi PRN QID PRN TP MUSCLE PAIN 09/08/20 18:30 Al Hydroxide/Mg Hydroxide (Mylanta Plus Xs) 15 ml PRN AFTMEALHC PRN PO DYSPEPSIA 09/08/20 18:30 Magnesium Hydroxide (Milk Of Magnesia) 2,400 mg PRN QHS PRN PO CONSTIPATION 09/08/20 18:30 Nicotine (Nicoderm Cq 7mg Patch) 1 patch DAILY PRN TD SMOKING CESSATION 09/08/20 18:30 09/08/20 22:07 DC Nicotine Polacrilex (Nicorette Gum) 2 mg PRN Q1HR PRN BC SMOKING CESSATION 09/08/20 22:15 Divalproex Sodium (Depakote Er) 500 mg QHS PO 09/09/20 21:00 09/12/20 22:01 DC 09/12/20 20:14 Risperidone (RisperDAL) 0.25 mg QHS PO 09/11/20 21:00 09/12/20 20:14 Cefdinir (Omnicef) 300 mg BID PO 09/11/20 21:00 09/17/20 22:00 09/12/20 20:14 Lactobacillus Rhamnosus (Culturelle) 1 cap BID PO 09/11/20 21:00 09/12/20 20:14 Divalproex Sodium (Depakote Er) 1,000 mg QHS PO 09/13/20 21:00 I have reviewed the current psychotropics carefully including drug interactions. Risk benefit ratio favors no change other than as noted in my dictated progress note. Diagnosis: Problems: (1) Impulse control disorder, unspecified (2) Major depressive disorder with psychotic features (3) Dementia with behavioral disturbance LUISANA WAGNER MD Sep 13, 2020 08:17
[2020-09-13] MEDS: LACTOBACILLUS RHAMNOSUS GG 1 CAPSULE. PO SCH ×2 (08:29→21:32)
[2020-09-13] MEDS: LISINOPRIL 10 MG TABLET PO SCH (08:29)
[2020-09-13] MEDS: SERTRALINE 25 MG TABLET. PO SCH (08:29)
[2020-09-13] MEDS: ASPIRIN CHEWABLE 81 MG TABLET. PO SCH (08:30)
[2020-09-13] MEDS: CEFDINIR 300 MG CAPSULE PO SCH ×2 (08:30→21:33)
[2020-09-13] MEDS: amLODIPine BESYLATE 5 MG TABLET PO SCH (08:30)
[2020-09-13] MEDS: GABAPENTIN 100 MG CAPSULE. PO SCH ×3 (08:30→21:33)
[2020-09-13 15:53] VITALS: BP 118/67
[2020-09-13] MEDS: rOPINIRole 0.5 MG TABLET. PO SCH (21:31)
[2020-09-13] MEDS: NICOTINE 7MG PATCH. TD SCH (21:31)
[2020-09-13] MEDS: DONEPEZIL HCL 5 MG TABLET. PO SCH (21:32)
[2020-09-13] MEDS: DIVALPROEX ER 500 MG TAB.ER.24H PO SCH (21:33)
[2020-09-13] MEDS: risperiDONE 0.25 MG TABLET. PO SCH (21:33)
--- NOTE | 2020-09-13 21:52 | PDOC ---
Exam Note: Raman Note: Please also refer to the separate dictated note~for this date of service dictated separately.~Patient seen individually. Discussed the patient with Nursing staff reviewed the chart.~Reviewed interim history and current functioning. Reviewed vital signs,~Labs/ Radiology~and current medications noted below. Continue current treatment with the changes noted in the dictated addendum note Assessment: Vital Signs/I&O: Vital Signs Date Time Temp Pulse Resp B/P (MAP) Pulse Ox O2 Delivery O2 Flow Rate FiO2 09/13/20 15:53 98.4 54 16 118/67 (84) 95 09/10/20 05:45 Room Air I & O 09/12/20 09/12/20 09/13/20 15:00 23:00 07:00 Intake Total 720 ml 360 ml 240 ml Balance 720 ml 360 ml 240 ml Current Medications: Meds: Current Medications Medications (Trade) Dose Ordered Sig/Eva Route PRN Reason Start Time Stop Time Status Last Admin Dose Admin Divalproex Sodium (Depakote Er) 1,000 mg QHS PO 09/13/20 21:00 09/13/20 21:33 Nicotine (Nicoderm Cq 7mg Patch) 1 patch DAILY TD 09/13/20 19:00 09/13/20 21:31 I have reviewed the current psychotropics carefully including drug interactions. Risk benefit ratio favors no change other than as noted in my dictated progress note. Diagnosis: Problems: (1) Impulse control disorder, unspecified (2) Major depressive disorder with psychotic features (3) Dementia with behavioral disturbance LUISANA WAGNER MD Sep 13, 2020 21:52
[2020-09-14 05:49] VITALS: BP 165/61
--- NOTE | 2020-09-14 06:53 | PDOC ---
Exam Note: Raman Note: This note is a late entry for 09/13/2020 covers elements not covered in my initial note. Subjective: The patient was seen individually in the evening of 09/13/2020 with Idalia DANIEL, discussed and reviewed the chart. He slept 6-3/4 hours previous night. Overall the patient has done fairly cooperative. His blood pressure has been elevated with a low heart rate. We are checking an EKG. We will defer to Dr. Sotomayor for her medical management. Valproic acid level today is 26. He has been obsessed about wanting to go home. I addressed this with him individually. The patient does have UTI and is on Cefdinir. He was requested to start Nicorette patch because he wants to quit smoking and we will start this. Review of Systems: Ambulation impaired with walker. No CV, , pulmonary, eye system symptoms on review. Mental Status Exam: The patient is reasonably oriented. Speech is coherent. Abstraction fair. Computation impaired. Language function intact. Attention span short. Mood and affect somewhat fairly euthymic mood and affect mood congruent. No suicidal or homicidal ideation. Laboratory Data: Reviewed. Impression: Major depressive disorder. Anxiety disorder unspecified. Plan: Valproic acid level is 26 slight subtherapeutic but adequate for him. Adjust as clinically indicated. Check EKG since he is somewhat hypertensive and bradycardic. We will defer to Dr. Sotomayor. Continue rest of the psychotropics. Depakote ER is being adjusted to reach therapeutic level. Maintain Zoloft, Risperdal, Aricept, gabapentin. Assessment: Vital Signs/I&O: Vital Signs Date Time Temp Pulse Resp B/P (MAP) Pulse Ox O2 Delivery O2 Flow Rate FiO2 09/14/20 05:49 97.8 64 16 165/61 (95) 97 09/10/20 05:45 Room Air I & O 09/13/20 09/13/20 09/14/20 14:59 22:59 06:59 Intake Total 960 ml 360 ml 240 ml Balance 960 ml 360 ml 240 ml Current Medications: Meds: Current Medications Medications (Trade) Dose Ordered Sig/Eva Route PRN Reason Start Time Stop Time Status Last Admin Dose Admin Amlodipine Besylate (Norvasc) 5 mg DAILY PO 09/09/20 09:00 09/13/20 08:30 Aspirin (Aspirin Chewable) 81 mg DAILY PO 09/09/20 09:00 09/13/20 08:30 Donepezil HCl (Aricept) 5 mg HS PO 09/08/20 21:00 09/13/20 21:32 Gabapentin (Neurontin) 100 mg TID PO 09/08/20 21:00 09/13/20 21:33 Lisinopril (Prinivil) 10 mg DAILY PO 09/09/20 09:00 09/13/20 08:29 Loperamide HCl (Imodium) 2 mg PRN Q2HRS PRN PO DIARRHEA 09/08/20 18:30 Ropinirole HCl (Requip) 0.5 mg HS PO 09/08/20 21:00 09/13/20 21:31 Sertraline HCl (Zoloft) 25 mg DAILY PO 09/09/20 09:00 09/13/20 08:29 Acetaminophen (Tylenol) 650 mg PRN Q6HRS PRN PO MILD PAIN / TEMP > 100.3'F 09/08/20 18:30 Multi-Ingredient Ointment (Analgesic [place]) 1 keerthi PRN QID PRN TP MUSCLE PAIN 09/08/20 18:30 Al Hydroxide/Mg Hydroxide (Mylanta Plus Xs) 15 ml PRN AFTMEALHC PRN PO DYSPEPSIA 09/08/20 18:30 Magnesium Hydroxide (Milk Of Magnesia) 2,400 mg PRN QHS PRN PO CONSTIPATION 09/08/20 18:30 Nicotine (Nicoderm Cq 7mg Patch) 1 patch DAILY PRN TD SMOKING CESSATION 09/08/20 18:30 09/08/20 22:07 DC Nicotine Polacrilex (Nicorette Gum) 2 mg PRN Q1HR PRN BC SMOKING CESSATION 09/08/20 22:15 09/13/20 15:28 Divalproex Sodium (Depakote Er) 500 mg QHS PO 09/09/20 21:00 09/12/20 22:01 DC 09/12/20 20:14 Risperidone (RisperDAL) 0.25 mg QHS PO 09/11/20 21:00 09/13/20 21:33 Cefdinir (Omnicef) 300 mg BID PO 09/11/20 21:00 09/17/20 22:00 09/13/20 21:33 Lactobacillus Rhamnosus (Culturelle) 1 cap BID PO 09/11/20 21:00 09/13/20 21:32 Divalproex Sodium (Depakote Er) 1,000 mg QHS PO 09/13/20 21:00 09/13/20 21:33 Nicotine (Nicoderm Cq 7mg Patch) 1 patch DAILY TD 09/13/20 19:00 09/13/20 21:31 Current Medications Medications (Trade) Dose Ordered Sig/Eva Route PRN Reason Start Time Stop Time Status Last Admin Dose Admin Divalproex Sodium (Depakote Er) 1,000 mg QHS PO 09/13/20 21:00 09/13/20 21:33 Nicotine (Nicoderm Cq 7mg Patch) 1 patch DAILY TD 09/13/20 19:00 09/13/20 21:31 I have reviewed the current psychotropics carefully including drug interactions. Risk benefit ratio favors no change other than as noted in my dictated progress note. Diagnosis: Problems: (1) Impulse control disorder, unspecified (2) Major depressive disorder with psychotic features (3) Dementia with behavioral disturbance LUISANA WAGNER MD Sep 14, 2020 06:53
[2020-09-14] MEDS: NICOTINE 7MG PATCH. TD SCH ×2 (07:41→08:50)
[2020-09-14] MEDS: ASPIRIN CHEWABLE 81 MG TABLET. PO SCH (08:44)
[2020-09-14] MEDS: amLODIPine BESYLATE 5 MG TABLET PO SCH (08:45)
[2020-09-14] MEDS: CEFDINIR 300 MG CAPSULE PO SCH ×2 (08:45→20:12)
[2020-09-14] MEDS: LISINOPRIL 10 MG TABLET PO SCH (08:45)
[2020-09-14] MEDS: LACTOBACILLUS RHAMNOSUS GG 1 CAPSULE. PO SCH ×2 (08:45→20:12)
[2020-09-14] MEDS: GABAPENTIN 100 MG CAPSULE. PO SCH ×3 (08:45→20:12)
[2020-09-14] MEDS: SERTRALINE 25 MG TABLET. PO SCH (08:46)
[2020-09-14 15:58] VITALS: BP 146/62
[2020-09-14] MEDS: DONEPEZIL HCL 5 MG TABLET. PO SCH (20:12)
[2020-09-14] MEDS: risperiDONE 0.25 MG TABLET. PO SCH (20:12)
[2020-09-14] MEDS: DIVALPROEX ER 500 MG TAB.ER.24H PO SCH (20:12)
[2020-09-14] MEDS: rOPINIRole 0.5 MG TABLET. PO SCH (20:12)
--- NOTE | 2020-09-14 22:01 | PDOC ---
Exam Note: Raman Note: Please also refer to the separate dictated note~for this date of service dictated separately.~Patient seen individually. Discussed the patient with Nursing staff reviewed the chart.~Reviewed interim history and current functioning. Reviewed vital signs,~Labs/ Radiology~and current medications noted below. Continue current treatment with the changes noted in the dictated addendum note Assessment: Vital Signs/I&O: Vital Signs Date Time Temp Pulse Resp B/P (MAP) Pulse Ox O2 Delivery O2 Flow Rate FiO2 09/14/20 15:58 96.4 52 18 146/62 (90) 99 Room Air I & O 09/13/20 09/13/20 09/14/20 15:00 23:00 07:00 Intake Total 960 ml 360 ml 240 ml Balance 960 ml 360 ml 240 ml Current Medications: Meds: Current Medications Medications (Trade) Dose Ordered Sig/Eva Route PRN Reason Start Time Stop Time Status Last Admin Dose Admin Amlodipine Besylate (Norvasc) 5 mg DAILY PO 09/09/20 09:00 09/14/20 08:45 Aspirin (Aspirin Chewable) 81 mg DAILY PO 09/09/20 09:00 09/14/20 08:44 Donepezil HCl (Aricept) 5 mg HS PO 09/08/20 21:00 09/14/20 20:12 Gabapentin (Neurontin) 100 mg TID PO 09/08/20 21:00 09/14/20 20:12 Lisinopril (Prinivil) 10 mg DAILY PO 09/09/20 09:00 09/14/20 08:45 Loperamide HCl (Imodium) 2 mg PRN Q2HRS PRN PO DIARRHEA 09/08/20 18:30 Ropinirole HCl (Requip) 0.5 mg HS PO 09/08/20 21:00 09/14/20 20:12 Sertraline HCl (Zoloft) 25 mg DAILY PO 09/09/20 09:00 09/14/20 08:46 Acetaminophen (Tylenol) 650 mg PRN Q6HRS PRN PO MILD PAIN / TEMP > 100.3'F 09/08/20 18:30 Multi-Ingredient Ointment (Analgesic [place]) 1 keerthi PRN QID PRN TP MUSCLE PAIN 09/08/20 18:30 Al Hydroxide/Mg Hydroxide (Mylanta Plus Xs) 15 ml PRN AFTMEALHC PRN PO DYSPEPSIA 09/08/20 18:30 Magnesium Hydroxide (Milk Of Magnesia) 2,400 mg PRN QHS PRN PO CONSTIPATION 09/08/20 18:30 Nicotine (Nicoderm Cq 7mg Patch) 1 patch DAILY PRN TD SMOKING CESSATION 09/08/20 18:30 09/08/20 22:07 DC Nicotine Polacrilex (Nicorette Gum) 2 mg PRN Q1HR PRN BC SMOKING CESSATION 09/08/20 22:15 09/13/20 15:28 Divalproex Sodium (Depakote Er) 500 mg QHS PO 09/09/20 21:00 09/12/20 22:01 DC 09/12/20 20:14 Risperidone (RisperDAL) 0.25 mg QHS PO 09/11/20 21:00 09/14/20 20:12 Cefdinir (Omnicef) 300 mg BID PO 09/11/20 21:00 09/17/20 22:00 09/14/20 20:12 Lactobacillus Rhamnosus (Culturelle) 1 cap BID PO 09/11/20 21:00 09/14/20 20:12 Divalproex Sodium (Depakote Er) 1,000 mg QHS PO 09/13/20 21:00 09/14/20 20:12 Nicotine (Nicoderm Cq 7mg Patch) 1 patch DAILY TD 09/13/20 19:00 09/14/20 08:50 I have reviewed the current psychotropics carefully including drug interactions. Risk benefit ratio favors no change other than as noted in my dictated progress note. Diagnosis: Problems: (1) Impulse control disorder, unspecified (2) Major depressive disorder with psychotic features (3) Dementia with behavioral disturbance LUISANA WAGNER MD Sep 14, 2020 22:01
[2020-09-15 05:41] VITALS: BP 174/91
[2020-09-15] MEDS: SERTRALINE 25 MG TABLET. PO SCH (08:24)
[2020-09-15] MEDS: CEFDINIR 300 MG CAPSULE PO SCH ×2 (08:24→20:14)
[2020-09-15] MEDS: ASPIRIN CHEWABLE 81 MG TABLET. PO SCH (08:24)
[2020-09-15] MEDS: LISINOPRIL 10 MG TABLET PO SCH (08:24)
[2020-09-15] MEDS: GABAPENTIN 100 MG CAPSULE. PO SCH ×3 (08:24→20:14)
[2020-09-15] MEDS: LACTOBACILLUS RHAMNOSUS GG 1 CAPSULE. PO SCH ×2 (08:24→20:13)
[2020-09-15] MEDS: NICOTINE 7MG PATCH. TD SCH (08:25)
[2020-09-15] MEDS: amLODIPine BESYLATE 5 MG TABLET PO SCH (08:25)
[2020-09-15] MEDS: NICOTINE 21MG PATCH. TD SCH (09:10)
[2020-09-15 16:12] VITALS: BP 178/75
[2020-09-15] MEDS: rOPINIRole 0.5 MG TABLET. PO SCH (20:13)
[2020-09-15] MEDS: risperiDONE 0.25 MG TABLET. PO SCH (20:14)
[2020-09-15] MEDS: DONEPEZIL HCL 5 MG TABLET. PO SCH (20:14)
[2020-09-15] MEDS: DIVALPROEX ER 500 MG TAB.ER.24H PO SCH (20:15)
--- NOTE | 2020-09-15 21:57 | PDOC ---
Exam Note: Raman Note: Please also refer to the separate dictated note~for this date of service dictated separately.~Patient seen individually. Discussed the patient with Nursing staff reviewed the chart.~Reviewed interim history and current functioning. Reviewed vital signs,~Labs/ Radiology~and current medications noted below. Continue current treatment with the changes noted in the dictated addendum note Assessment: Vital Signs/I&O: Vital Signs Date Time Temp Pulse Resp B/P (MAP) Pulse Ox O2 Delivery O2 Flow Rate FiO2 09/15/20 16:12 98.0 67 16 178/75 (109) 99 Room Air I & O 09/14/20 09/14/20 09/15/20 15:00 23:00 07:00 Intake Total 720 ml 480 ml Balance 720 ml 480 ml Current Medications: Meds: Current Medications Medications (Trade) Dose Ordered Sig/Eva Route PRN Reason Start Time Stop Time Status Last Admin Dose Admin Amlodipine Besylate (Norvasc) 5 mg DAILY PO 09/09/20 09:00 09/15/20 08:25 Aspirin (Aspirin Chewable) 81 mg DAILY PO 09/09/20 09:00 09/15/20 08:24 Donepezil HCl (Aricept) 5 mg HS PO 09/08/20 21:00 09/15/20 20:14 Gabapentin (Neurontin) 100 mg TID PO 09/08/20 21:00 09/15/20 20:14 Lisinopril (Prinivil) 10 mg DAILY PO 09/09/20 09:00 09/15/20 08:24 Loperamide HCl (Imodium) 2 mg PRN Q2HRS PRN PO DIARRHEA 09/08/20 18:30 Ropinirole HCl (Requip) 0.5 mg HS PO 09/08/20 21:00 09/15/20 20:13 Sertraline HCl (Zoloft) 25 mg DAILY PO 09/09/20 09:00 09/15/20 08:24 Acetaminophen (Tylenol) 650 mg PRN Q6HRS PRN PO MILD PAIN / TEMP > 100.3'F 09/08/20 18:30 Multi-Ingredient Ointment (Analgesic [place]) 1 keerthi PRN QID PRN TP MUSCLE PAIN 09/08/20 18:30 Al Hydroxide/Mg Hydroxide (Mylanta Plus Xs) 15 ml PRN AFTMEALHC PRN PO DYSPEPSIA 09/08/20 18:30 Magnesium Hydroxide (Milk Of Magnesia) 2,400 mg PRN QHS PRN PO CONSTIPATION 09/08/20 18:30 Nicotine (Nicoderm Cq 7mg Patch) 1 patch DAILY PRN TD SMOKING CESSATION 09/08/20 18:30 09/08/20 22:07 DC Nicotine Polacrilex (Nicorette Gum) 2 mg PRN Q1HR PRN BC SMOKING CESSATION 09/08/20 22:15 09/13/20 15:28 Divalproex Sodium (Depakote Er) 500 mg QHS PO 09/09/20 21:00 09/12/20 22:01 DC 09/12/20 20:14 Risperidone (RisperDAL) 0.25 mg QHS PO 09/11/20 21:00 09/15/20 20:14 Cefdinir (Omnicef) 300 mg BID PO 09/11/20 21:00 09/17/20 22:00 09/15/20 20:14 Lactobacillus Rhamnosus (Culturelle) 1 cap BID PO 09/11/20 21:00 09/15/20 20:13 Divalproex Sodium (Depakote Er) 1,000 mg QHS PO 09/13/20 21:00 09/15/20 20:15 Nicotine (Nicoderm Cq 7mg Patch) 1 patch DAILY TD 09/13/20 19:00 09/15/20 08:28 DC 09/14/20 08:50 Nicotine (Nicoderm Cq 21mg Patch) 1 patch DAILY TD 09/15/20 09:00 09/15/20 09:10 Trazodone HCl (Desyrel) 50 mg PRN DAILY PRN PO Sleep Aid 09/15/20 18:00 Current Medications Medications (Trade) Dose Ordered Sig/Eva Route PRN Reason Start Time Stop Time Status Last Admin Dose Admin Nicotine (Nicoderm Cq 21mg Patch) 1 patch DAILY TD 09/15/20 09:00 09/15/20 09:10 I have reviewed the current psychotropics carefully including drug interactions. Risk benefit ratio favors no change other than as noted in my dictated progress note. Diagnosis: Problems: (1) Impulse control disorder, unspecified (2) Major depressive disorder with psychotic features (3) Dementia with behavioral disturbance LUISANA WAGNER MD Sep 15, 2020 21:57
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
--- NOTE | 2020-09-16 05:38 | PN ---
DATE: 09/14/2020 SUBJECTIVE: The patient denies any new medical or neurological complaints. He continues to have mild weakness of the right lower extremity. He denies any recent falls or head injuries. The patient requests to have nicotine patches instead of gum. He denies chest pain, shortness of breath or palpitation, dysarthria or dysphagia. OBJECTIVE: GENERAL: Well-developed, well-nourished male, not in acute distress. VITAL SIGNS: Blood pressure is 165/61, respiratory rate 18, pulse is 64 and regular, temperature is 96.4, oxygen saturation is 97% on room air. HEENT: Normocephalic, atraumatic, otherwise unremarkable. NECK: Supple, negative for carotid bruit, lymphadenopathy or thyromegaly. LUNGS: Clear to A and P. CARDIOVASCULAR: Regular rate and rhythm, normal S1, S2. There is no S3, S4 or murmur. ABDOMEN: Soft. Bowel sounds positive. EXTREMITIES: Negative for cyanosis, clubbing or pedal edema. NEUROLOGIC: The patient is alert and oriented x2. The speech is fluent. There is no language dysfunction. Cranial nerves otherwise unremarkable. Cranial nerves are intact. No focal motor deficit; however, the strength is 4/5 in the right upper and lower extremities. Sensory examination revealed normal pinprick and light touch senses. Deep tendon reflexes were symmetric and hypoactive with absent Achilles responses. Gait: The patient uses a walker for ambulation. IMPRESSION: 1. Mild paresis of the right upper and lower extremities compared to those into the left side, probably secondary to a stroke. 2. Multiple risk factors for stroke including possible history of TIA, hypertension, hyperlipidemia and smoking. 3. Multiple psychiatric problems including depression, impulse disorder and explosive disorder. RECOMMENDATIONS: 1. Continue with current medical and psychiatric care. 2. Physical therapy evaluation. WILLIAM/JEROME/LUCIA DR: Satinder TID: [id number]
[2020-09-16 05:57] VITALS: BP 150/78
[2020-09-16 07:11] LABS: BASO % 0 % (0-3); EOS # 0.2 x10^3/uL (0.0-0.7); EOS % 2 % (0-3); HEMATOCRIT 40.4 % (39.0-53.0); HEMOGLOBIN 13.8 g/dL (13.0-17.5); LYMPH # 1.2 x10^3/uL (1.0-4.8); LYMPH % 14 % (24-48); MEAN CORPUSCULAR HEMOGLOBIN 32 pg (25-35); MEAN CORPUSCULAR HGB CONC 34 g/dL (31-37); MEAN CORPUSCULAR VOLUME 94 fL (79-100); MONO # 0.7 x10^3/uL (0.0-1.1); MONO % 8 % (0-9); NEUT # 6.7 x10^3uL (1.8-7.7); NEUT % 76 % (31-73); PLATELET COUNT 257 x10^3/uL (140-400); WHITE BLOOD COUNT 8.8 x10^3/uL (4.0-11.0)
--- NOTE | 2020-09-16 07:14 | PDOC ---
Exam Note: Raman Note: This note is a late entry for 09/14/2020 covers elements not covered in my initial note. Subjective: The patient was seen individually in the evening of 09/14/2020 with Parrish DANIEL, discussed and reviewed the chart. He slept 6-3/4 hours previous night. The patient is very appreciative of getting the Nicorette patch. He is compliant with medications, calm, pleasant. Review of Systems: Ambulation impaired with walker. No CV, , pulmonary, eye system symptoms on review. Mental Status Exam: The patient is reasonably oriented. He is verbally very appreciative of the care he has received here. Speech is coherent. Abstraction fair. Computation impaired. Language function intact. Attention span short. Mood and affect euthymic and mood congruent. No suicidal or homicidal ideation. Laboratory Data: Reviewed. Impression: Major depressive disorder. Anxiety disorder unspecified. Plan: Continue rest of the psychotropics. Assessment: Vital Signs/I&O: Vital Signs Date Time Temp Pulse Resp B/P (MAP) Pulse Ox O2 Delivery O2 Flow Rate FiO2 09/16/20 05:57 97.5 52 16 150/78 (102) 98 Room Air I & O 09/15/20 09/15/20 09/16/20 15:00 23:00 07:00 Intake Total 240 ml 720 ml Balance 240 ml 720 ml Current Medications: Meds: Current Medications Medications (Trade) Dose Ordered Sig/Eva Route PRN Reason Start Time Stop Time Status Last Admin Dose Admin Amlodipine Besylate (Norvasc) 5 mg DAILY PO 09/09/20 09:00 09/15/20 08:25 Aspirin (Aspirin Chewable) 81 mg DAILY PO 09/09/20 09:00 09/15/20 08:24 Donepezil HCl (Aricept) 5 mg HS PO 09/08/20 21:00 09/15/20 20:14 Gabapentin (Neurontin) 100 mg TID PO 09/08/20 21:00 09/15/20 20:14 Lisinopril (Prinivil) 10 mg DAILY PO 09/09/20 09:00 09/15/20 08:24 Loperamide HCl (Imodium) 2 mg PRN Q2HRS PRN PO DIARRHEA 09/08/20 18:30 Ropinirole HCl (Requip) 0.5 mg HS PO 09/08/20 21:00 09/15/20 20:13 Sertraline HCl (Zoloft) 25 mg DAILY PO 09/09/20 09:00 09/15/20 08:24 Acetaminophen (Tylenol) 650 mg PRN Q6HRS PRN PO MILD PAIN / TEMP > 100.3'F 09/08/20 18:30 Multi-Ingredient Ointment (Analgesic [place]) 1 keerthi PRN QID PRN TP MUSCLE PAIN 09/08/20 18:30 Al Hydroxide/Mg Hydroxide (Mylanta Plus Xs) 15 ml PRN AFTMEALHC PRN PO DYSPEPSIA 09/08/20 18:30 Magnesium Hydroxide (Milk Of Magnesia) 2,400 mg PRN QHS PRN PO CONSTIPATION 09/08/20 18:30 Nicotine (Nicoderm Cq 7mg Patch) 1 patch DAILY PRN TD SMOKING CESSATION 09/08/20 18:30 09/08/20 22:07 DC Nicotine Polacrilex (Nicorette Gum) 2 mg PRN Q1HR PRN BC SMOKING CESSATION 09/08/20 22:15 09/13/20 15:28 Divalproex Sodium (Depakote Er) 500 mg QHS PO 09/09/20 21:00 09/12/20 22:01 DC 09/12/20 20:14 Risperidone (RisperDAL) 0.25 mg QHS PO 09/11/20 21:00 09/15/20 20:14 Cefdinir (Omnicef) 300 mg BID PO 09/11/20 21:00 09/17/20 22:00 09/15/20 20:14 Lactobacillus Rhamnosus (Culturelle) 1 cap BID PO 09/11/20 21:00 09/15/20 20:13 Divalproex Sodium (Depakote Er) 1,000 mg QHS PO 09/13/20 21:00 09/15/20 20:15 Nicotine (Nicoderm Cq 7mg Patch) 1 patch DAILY TD 09/13/20 19:00 09/15/20 08:28 DC 09/14/20 08:50 Nicotine (Nicoderm Cq 21mg Patch) 1 patch DAILY TD 09/15/20 09:00 09/15/20 09:10 Trazodone HCl (Desyrel) 50 mg PRN DAILY PRN PO Sleep Aid 09/15/20 18:00 Current Medications Medications (Trade) Dose Ordered Sig/Eva Route PRN Reason Start Time Stop Time Status Last Admin Dose Admin Nicotine (Nicoderm Cq 21mg Patch) 1 patch DAILY TD 09/15/20 09:00 09/15/20 09:10 I have reviewed the current psychotropics carefully including drug interactions. Risk benefit ratio favors no change other than as noted in my dictated progress note. Diagnosis: Problems: (1) Impulse control disorder, unspecified (2) Major depressive disorder with psychotic features (3) Dementia with behavioral disturbance LUISANA WAGNER MD Sep 16, 2020 07:14
[2020-09-16 07:22] LABS: ALBUMIN 3.3 g/dL (3.4-5.0); ALBUMIN/GLOBULIN RATIO 1.1 (1.0-1.7); ALK PHOS 71 U/L (46-116); ALT (SGPT) 24 U/L (16-63); ANION GAP 8 (6-14); AST (SGOT) 17 U/L (15-37); BLOOD UREA NITROGEN 10 mg/dL (8-26); BUN/CREATININE RATIO 11 (6-20); CALCIUM 8.2 mg/dL (8.5-10.1); CARBON DIOXIDE 26 mmol/L (21-32); CHLORIDE 112 mmol/L (98-107); CREATININE 0.9 mg/dL (0.7-1.3); GFR 82.5; GLUCOSE 87 mg/dL (70-99); POTASSIUM 3.9 mmol/L (3.5-5.1); SODIUM 146 mmol/L (136-145); TOTAL BILIRUBIN 0.8 mg/dL (0.2-1.0); TOTAL PROTEIN 6.3 g/dL (6.4-8.2)
[2020-09-16 07:24] LABS: VAL ACID 43 mcg/mL (50-100)
--- NOTE | 2020-09-16 07:30 | PDOC ---
Exam Note: Raman Note: This note is a late entry for 09/15/2020 covers elements not covered in my initial note. Subjective: The patient was seen individually in the evening of 09/15/2020 with Parrish DANIEL, discussed and reviewed the chart. He slept 3 hours previous night. Otherwise, the patient has been appropriate on the unit. Review of Systems: Ambulation impaired with walker. No CV, , pulmonary, eye system symptoms on review. Mental Status Exam: The patient is reasonably oriented. Speech is coherent. Abstraction fair. Computation impaired. Language function intact. Attention span short. Mood and affect improved. Laboratory Data: Reviewed. Impression: Major depressive disorder. Anxiety disorder unspecified. Plan: Continue rest of the psychotropics. Adjust Depakote to reach therapeutic level. Assessment: Vital Signs/I&O: Vital Signs Date Time Temp Pulse Resp B/P (MAP) Pulse Ox O2 Delivery O2 Flow Rate FiO2 09/16/20 05:57 97.5 52 16 150/78 (102) 98 Room Air I & O 09/15/20 09/15/20 09/16/20 15:00 23:00 07:00 Intake Total 240 ml 720 ml Balance 240 ml 720 ml Labs: Laboratory Tests Test 09/16/20 06:45 White Blood Count 8.8 x10^3/uL (4.0-11.0) Red Blood Count 4.30 x10^6/uL (4.30-5.70) Hemoglobin 13.8 g/dL (13.0-17.5) Hematocrit 40.4 % (39.0-53.0) Mean Corpuscular Volume 94 fL (79-100) Mean Corpuscular Hemoglobin 32 pg (25-35) Mean Corpuscular Hemoglobin Concent 34 g/dL (31-37) Red Cell Distribution Width 14.0 % (11.5-14.5) Platelet Count 257 x10^3/uL (140-400) Neutrophils (%) (Auto) 76 % (31-73) H Lymphocytes (%) (Auto) 14 % (24-48) L Monocytes (%) (Auto) 8 % (0-9) Eosinophils (%) (Auto) 2 % (0-3) Basophils (%) (Auto) 0 % (0-3) Neutrophils # (Auto) 6.7 x10^3uL (1.8-7.7) Lymphocytes # (Auto) 1.2 x10^3/uL (1.0-4.8) Monocytes # (Auto) 0.7 x10^3/uL (0.0-1.1) Eosinophils # (Auto) 0.2 x10^3/uL (0.0-0.7) Basophils # (Auto) 0.0 x10^3/uL (0.0-0.2) Sodium Level 146 mmol/L (136-145) H Potassium Level 3.9 mmol/L (3.5-5.1) Chloride Level 112 mmol/L (98-107) H Carbon Dioxide Level 26 mmol/L (21-32) Anion Gap 8 (6-14) Blood Urea Nitrogen 10 mg/dL (8-26) Creatinine 0.9 mg/dL (0.7-1.3) Estimated GFR (Cockcroft-Gault) 82.5 BUN/Creatinine Ratio 11 (6-20) Glucose Level 87 mg/dL (70-99) Calcium Level 8.2 mg/dL (8.5-10.1) L Total Bilirubin 0.8 mg/dL (0.2-1.0) Aspartate Amino Transferase (AST) 17 U/L (15-37) Alanine Aminotransferase (ALT) 24 U/L (16-63) Alkaline Phosphatase 71 U/L (46-116) Total Protein 6.3 g/dL (6.4-8.2) L Albumin 3.3 g/dL (3.4-5.0) L Albumin/Globulin Ratio 1.1 (1.0-1.7) Valproic Acid Level 43 mcg/mL (50-100) L Valproic Acid Last Dose Date 09/15/20 Valproic Acid Last Dose Time 2100 Current Medications: Meds: Laboratory Tests Test 09/16/20 06:45 White Blood Count 8.8 x10^3/uL Red Blood Count 4.30 x10^6/uL Hemoglobin 13.8 g/dL Hematocrit 40.4 % Mean Corpuscular Volume 94 fL Mean Corpuscular Hemoglobin 32 pg Mean Corpuscular Hemoglobin Concent 34 g/dL Red Cell Distribution Width 14.0 % Platelet Count 257 x10^3/uL Neutrophils (%) (Auto) 76 % Lymphocytes (%) (Auto) 14 % Monocytes (%) (Auto) 8 % Eosinophils (%) (Auto) 2 % Basophils (%) (Auto) 0 % Neutrophils # (Auto) 6.7 x10^3uL Lymphocytes # (Auto) 1.2 x10^3/uL Monocytes # (Auto) 0.7 x10^3/uL Eosinophils # (Auto) 0.2 x10^3/uL Basophils # (Auto) 0.0 x10^3/uL Sodium Level 146 mmol/L Potassium Level 3.9 mmol/L Chloride Level 112 mmol/L Carbon Dioxide Level 26 mmol/L Anion Gap 8 Blood Urea Nitrogen 10 mg/dL Creatinine 0.9 mg/dL Estimated GFR (Cockcroft-Gault) 82.5 BUN/Creatinine Ratio 11 Glucose Level 87 mg/dL Calcium Level 8.2 mg/dL Total Bilirubin 0.8 mg/dL Aspartate Amino Transf (AST/SGOT) 17 U/L Alanine Aminotransferase (ALT/SGPT) 24 U/L Alkaline Phosphatase 71 U/L Total Protein 6.3 g/dL Albumin 3.3 g/dL Albumin/Globulin Ratio 1.1 Valproic Acid (Depakene) Level 43 mcg/mL Valproic Acid Last Dose Date 09/15/20 Valproic Acid Last Dose Time 2100 Current Medications Medications (Trade) Dose Ordered Sig/Eva Route PRN Reason Start Time Stop Time Status Last Admin Dose Admin Amlodipine Besylate (Norvasc) 5 mg DAILY PO 09/09/20 09:00 09/15/20 08:25 Aspirin (Aspirin Chewable) 81 mg DAILY PO 09/09/20 09:00 09/15/20 08:24 Donepezil HCl (Aricept) 5 mg HS PO 09/08/20 21:00 09/15/20 20:14 Gabapentin (Neurontin) 100 mg TID PO 09/08/20 21:00 09/15/20 20:14 Lisinopril (Prinivil) 10 mg DAILY PO 09/09/20 09:00 09/15/20 08:24 Loperamide HCl (Imodium) 2 mg PRN Q2HRS PRN PO DIARRHEA 09/08/20 18:30 Ropinirole HCl (Requip) 0.5 mg HS PO 09/08/20 21:00 09/15/20 20:13 Sertraline HCl (Zoloft) 25 mg DAILY PO 09/09/20 09:00 09/15/20 08:24 Acetaminophen (Tylenol) 650 mg PRN Q6HRS PRN PO MILD PAIN / TEMP > 100.3'F 09/08/20 18:30 Multi-Ingredient Ointment (Analgesic [place]) 1 keerthi PRN QID PRN TP MUSCLE PAIN 09/08/20 18:30 Al Hydroxide/Mg Hydroxide (Mylanta Plus Xs) 15 ml PRN AFTMEALHC PRN PO DYSPEPSIA 09/08/20 18:30 Magnesium Hydroxide (Milk Of Magnesia) 2,400 mg PRN QHS PRN PO CONSTIPATION 09/08/20 18:30 Nicotine (Nicoderm Cq 7mg Patch) 1 patch DAILY PRN TD SMOKING CESSATION 09/08/20 18:30 09/08/20 22:07 DC Nicotine Polacrilex (Nicorette Gum) 2 mg PRN Q1HR PRN BC SMOKING CESSATION 09/08/20 22:15 09/13/20 15:28 Divalproex Sodium (Depakote Er) 500 mg QHS PO 09/09/20 21:00 09/12/20 22:01 DC 09/12/20 20:14 Risperidone (RisperDAL) 0.25 mg QHS PO 09/11/20 21:00 09/15/20 20:14 Cefdinir (Omnicef) 300 mg BID PO 09/11/20 21:00 09/17/20 22:00 09/15/20 20:14 Lactobacillus Rhamnosus (Culturelle) 1 cap BID PO 09/11/20 21:00 09/15/20 20:13 Divalproex Sodium (Depakote Er) 1,000 mg QHS PO 09/13/20 21:00 09/15/20 20:15 Nicotine (Nicoderm Cq 7mg Patch) 1 patch DAILY TD 09/13/20 19:00 09/15/20 08:28 DC 09/14/20 08:50 Nicotine (Nicoderm Cq 21mg Patch) 1 patch DAILY TD 09/15/20 09:00 09/15/20 09:10 Trazodone HCl (Desyrel) 50 mg PRN DAILY PRN PO Sleep Aid 09/15/20 18:00 Current Medications Medications (Trade) Dose Ordered Sig/Eva Route PRN Reason Start Time Stop Time Status Last Admin Dose Admin Nicotine (Nicoderm Cq 21mg Patch) 1 patch DAILY TD 09/15/20 09:00 09/15/20 09:10 I have reviewed the current psychotropics carefully including drug interactions. Risk benefit ratio favors no change other than as noted in my dictated progress note. Diagnosis: Problems: (1) Impulse control disorder, unspecified (2) Major depressive disorder with psychotic features (3) Dementia with behavioral disturbance LUISANA WAGNER MD Sep 16, 2020 07:30
[2020-09-16] MEDS: CEFDINIR 300 MG CAPSULE PO SCH ×2 (08:36→20:32)
[2020-09-16] MEDS: ASPIRIN CHEWABLE 81 MG TABLET. PO SCH (08:36)
[2020-09-16] MEDS: GABAPENTIN 100 MG CAPSULE. PO SCH ×3 (08:37→20:31)
[2020-09-16] MEDS: NICOTINE 21MG PATCH. TD SCH (08:37)
[2020-09-16] MEDS: SERTRALINE 25 MG TABLET. PO SCH (08:37)
[2020-09-16] MEDS: LACTOBACILLUS RHAMNOSUS GG 1 CAPSULE. PO SCH ×2 (08:37→20:32)
[2020-09-16] MEDS: amLODIPine BESYLATE 5 MG TABLET PO SCH (08:38)
[2020-09-16] MEDS: LISINOPRIL 10 MG TABLET PO SCH (08:38)
[2020-09-16 16:16] VITALS: BP 140/82
[2020-09-16] MEDS: DONEPEZIL HCL 5 MG TABLET. PO SCH (20:31)
[2020-09-16] MEDS: DIVALPROEX ER 500 MG TAB.ER.24H PO SCH (20:32)
[2020-09-16] MEDS: risperiDONE 0.25 MG TABLET. PO SCH (20:33)
[2020-09-16] MEDS: rOPINIRole 0.5 MG TABLET. PO SCH (20:33)
--- NOTE | 2020-09-16 23:16 | PDOC ---
Exam Note: Raman Note: Please also refer to the separate dictated note~for this date of service dictated separately.~Patient seen individually. Discussed the patient with Nursing staff reviewed the chart.~Reviewed interim history and current functioning. Reviewed vital signs,~Labs/ Radiology~and current medications noted below. Continue current treatment with the changes noted in the dictated addendum note Assessment: Vital Signs/I&O: Vital Signs Date Time Temp Pulse Resp B/P (MAP) Pulse Ox O2 Delivery O2 Flow Rate FiO2 09/16/20 16:16 98.0 60 18 140/82 (101) 98 09/16/20 05:57 Room Air I & O 09/15/20 09/15/20 09/16/20 15:00 23:00 07:00 Intake Total 240 ml 720 ml Balance 240 ml 720 ml Labs: Laboratory Tests Test 09/16/20 06:45 White Blood Count 8.8 x10^3/uL (4.0-11.0) Red Blood Count 4.30 x10^6/uL (4.30-5.70) Hemoglobin 13.8 g/dL (13.0-17.5) Hematocrit 40.4 % (39.0-53.0) Mean Corpuscular Volume 94 fL (79-100) Mean Corpuscular Hemoglobin 32 pg (25-35) Mean Corpuscular Hemoglobin Concent 34 g/dL (31-37) Red Cell Distribution Width 14.0 % (11.5-14.5) Platelet Count 257 x10^3/uL (140-400) Neutrophils (%) (Auto) 76 % (31-73) H Lymphocytes (%) (Auto) 14 % (24-48) L Monocytes (%) (Auto) 8 % (0-9) Eosinophils (%) (Auto) 2 % (0-3) Basophils (%) (Auto) 0 % (0-3) Neutrophils # (Auto) 6.7 x10^3uL (1.8-7.7) Lymphocytes # (Auto) 1.2 x10^3/uL (1.0-4.8) Monocytes # (Auto) 0.7 x10^3/uL (0.0-1.1) Eosinophils # (Auto) 0.2 x10^3/uL (0.0-0.7) Basophils # (Auto) 0.0 x10^3/uL (0.0-0.2) Sodium Level 146 mmol/L (136-145) H Potassium Level 3.9 mmol/L (3.5-5.1) Chloride Level 112 mmol/L (98-107) H Carbon Dioxide Level 26 mmol/L (21-32) Anion Gap 8 (6-14) Blood Urea Nitrogen 10 mg/dL (8-26) Creatinine 0.9 mg/dL (0.7-1.3) Estimated GFR (Cockcroft-Gault) 82.5 BUN/Creatinine Ratio 11 (6-20) Glucose Level 87 mg/dL (70-99) Calcium Level 8.2 mg/dL (8.5-10.1) L Total Bilirubin 0.8 mg/dL (0.2-1.0) Aspartate Amino Transferase (AST) 17 U/L (15-37) Alanine Aminotransferase (ALT) 24 U/L (16-63) Alkaline Phosphatase 71 U/L (46-116) Total Protein 6.3 g/dL (6.4-8.2) L Albumin 3.3 g/dL (3.4-5.0) L Albumin/Globulin Ratio 1.1 (1.0-1.7) Valproic Acid Level 43 mcg/mL (50-100) L Valproic Acid Last Dose Date 09/15/20 Valproic Acid Last Dose Time 2100 Current Medications: Meds: Laboratory Tests Test 09/16/20 06:45 White Blood Count 8.8 x10^3/uL Red Blood Count 4.30 x10^6/uL Hemoglobin 13.8 g/dL Hematocrit 40.4 % Mean Corpuscular Volume 94 fL Mean Corpuscular Hemoglobin 32 pg Mean Corpuscular Hemoglobin Concent 34 g/dL Red Cell Distribution Width 14.0 % Platelet Count 257 x10^3/uL Neutrophils (%) (Auto) 76 % Lymphocytes (%) (Auto) 14 % Monocytes (%) (Auto) 8 % Eosinophils (%) (Auto) 2 % Basophils (%) (Auto) 0 % Neutrophils # (Auto) 6.7 x10^3uL Lymphocytes # (Auto) 1.2 x10^3/uL Monocytes # (Auto) 0.7 x10^3/uL Eosinophils # (Auto) 0.2 x10^3/uL Basophils # (Auto) 0.0 x10^3/uL Sodium Level 146 mmol/L Potassium Level 3.9 mmol/L Chloride Level 112 mmol/L Carbon Dioxide Level 26 mmol/L Anion Gap 8 Blood Urea Nitrogen 10 mg/dL Creatinine 0.9 mg/dL Estimated GFR (Cockcroft-Gault) 82.5 BUN/Creatinine Ratio 11 Glucose Level 87 mg/dL Calcium Level 8.2 mg/dL Total Bilirubin 0.8 mg/dL Aspartate Amino Transf (AST/SGOT) 17 U/L Alanine Aminotransferase (ALT/SGPT) 24 U/L Alkaline Phosphatase 71 U/L Total Protein 6.3 g/dL Albumin 3.3 g/dL Albumin/Globulin Ratio 1.1 Valproic Acid (Depakene) Level 43 mcg/mL Valproic Acid Last Dose Date 09/15/20 Valproic Acid Last Dose Time 2100 Current Medications Medications (Trade) Dose Ordered Sig/Eva Route PRN Reason Start Time Stop Time Status Last Admin Dose Admin Amlodipine Besylate (Norvasc) 5 mg DAILY PO 09/09/20 09:00 09/16/20 08:38 Aspirin (Aspirin Chewable) 81 mg DAILY PO 09/09/20 09:00 09/16/20 08:36 Donepezil HCl (Aricept) 5 mg HS PO 09/08/20 21:00 09/16/20 20:31 Gabapentin (Neurontin) 100 mg TID PO 09/08/20 21:00 09/16/20 20:31 Lisinopril (Prinivil) 10 mg DAILY PO 09/09/20 09:00 09/16/20 08:38 Loperamide HCl (Imodium) 2 mg PRN Q2HRS PRN PO DIARRHEA 09/08/20 18:30 Ropinirole HCl (Requip) 0.5 mg HS PO 09/08/20 21:00 09/16/20 20:33 Sertraline HCl (Zoloft) 25 mg DAILY PO 09/09/20 09:00 09/16/20 08:37 Acetaminophen (Tylenol) 650 mg PRN Q6HRS PRN PO MILD PAIN / TEMP > 100.3'F 09/08/20 18:30 Multi-Ingredient Ointment (Analgesic [place]) 1 keerthi PRN QID PRN TP MUSCLE PAIN 09/08/20 18:30 Al Hydroxide/Mg Hydroxide (Mylanta Plus Xs) 15 ml PRN AFTMEALHC PRN PO DYSPEPSIA 09/08/20 18:30 Magnesium Hydroxide (Milk Of Magnesia) 2,400 mg PRN QHS PRN PO CONSTIPATION 09/08/20 18:30 Nicotine (Nicoderm Cq 7mg Patch) 1 patch DAILY PRN TD SMOKING CESSATION 09/08/20 18:30 09/08/20 22:07 DC Nicotine Polacrilex (Nicorette Gum) 2 mg PRN Q1HR PRN BC SMOKING CESSATION 09/08/20 22:15 09/13/20 15:28 Divalproex Sodium (Depakote Er) 500 mg QHS PO 09/09/20 21:00 09/12/20 22:01 DC 09/12/20 20:14 Risperidone (RisperDAL) 0.25 mg QHS PO 09/11/20 21:00 09/16/20 20:33 Cefdinir (Omnicef) 300 mg BID PO 09/11/20 21:00 09/17/20 22:00 09/16/20 20:32 Lactobacillus Rhamnosus (Culturelle) 1 cap BID PO 09/11/20 21:00 09/16/20 20:32 Divalproex Sodium (Depakote Er) 1,000 mg QHS PO 09/13/20 21:00 09/16/20 17:47 DC 09/15/20 20:15 Nicotine (Nicoderm Cq 7mg Patch) 1 patch DAILY TD 09/13/20 19:00 09/15/20 08:28 DC 09/14/20 08:50 Nicotine (Nicoderm Cq 21mg Patch) 1 patch DAILY TD 09/15/20 09:00 09/16/20 08:37 Trazodone HCl (Desyrel) 50 mg PRN DAILY PRN PO Sleep Aid 09/15/20 18:00 Divalproex Sodium (Depakote Er) 1,500 mg QHS PO 09/16/20 21:00 09/16/20 20:32 Current Medications Medications (Trade) Dose Ordered Sig/Eva Route PRN Reason Start Time Stop Time Status Last Admin Dose Admin Divalproex Sodium (Depakote Er) 1,500 mg QHS PO 09/16/20 21:00 09/16/20 20:32 I have reviewed the current psychotropics carefully including drug interactions. Risk benefit ratio favors no change other than as noted in my dictated progress note. Diagnosis: Problems: (1) Impulse control disorder, unspecified (2) Major depressive disorder with psychotic features (3) Dementia with behavioral disturbance LUISANA WAGNER MD Sep 16, 2020 23:16
[2020-09-17 06:33] VITALS: BP 170/86
[2020-09-17] MEDS: CEFDINIR 300 MG CAPSULE PO SCH ×2 (08:11→19:59)
[2020-09-17] MEDS: LISINOPRIL 10 MG TABLET PO SCH (08:11)
[2020-09-17] MEDS: NICOTINE 21MG PATCH. TD SCH (08:11)
[2020-09-17] MEDS: amLODIPine BESYLATE 5 MG TABLET PO SCH (08:11)
[2020-09-17] MEDS: ASPIRIN CHEWABLE 81 MG TABLET. PO SCH (08:12)
[2020-09-17] MEDS: LACTOBACILLUS RHAMNOSUS GG 1 CAPSULE. PO SCH ×2 (08:12→19:58)
[2020-09-17] MEDS: GABAPENTIN 100 MG CAPSULE. PO SCH ×3 (08:12→19:59)
[2020-09-17] MEDS: SERTRALINE 25 MG TABLET. PO SCH (08:12)
[2020-09-17 15:44] VITALS: BP 166/77
[2020-09-17] MEDS: risperiDONE 0.25 MG TABLET. PO SCH (19:59)
[2020-09-17] MEDS: rOPINIRole 0.5 MG TABLET. PO SCH (19:59)
[2020-09-17] MEDS: DIVALPROEX ER 500 MG TAB.ER.24H PO SCH (20:00)
[2020-09-17] MEDS: DONEPEZIL HCL 5 MG TABLET. PO SCH (20:00)
[2020-09-17] MEDS: LOPERAMIDE 2 MG CAPSULE PO PRN (21:37)
[2020-09-17] MEDS: traZODone 50 MG TABLET. PO PRN (21:39)
[2020-09-18 05:55] VITALS: BP 165/71
[2020-09-18] MEDS: NICOTINE 21MG PATCH. TD SCH (08:13)
[2020-09-18] MEDS: LACTOBACILLUS RHAMNOSUS GG 1 CAPSULE. PO SCH ×2 (08:14→21:45)
[2020-09-18] MEDS: LISINOPRIL 10 MG TABLET PO SCH (08:15)
[2020-09-18] MEDS: ASPIRIN CHEWABLE 81 MG TABLET. PO SCH (08:15)
[2020-09-18] MEDS: SERTRALINE 25 MG TABLET. PO SCH (08:15)
[2020-09-18] MEDS: GABAPENTIN 100 MG CAPSULE. PO SCH ×3 (08:15→21:45)
[2020-09-18] MEDS: amLODIPine BESYLATE 5 MG TABLET PO SCH (08:16)
--- NOTE | 2020-09-18 09:17 | PDOC ---
Exam Note: Raman Note: This note is a late entry for 09/16/2020 covers elements not covered in my initial note. Subjective: The patient was seen on telehealth rounds in the evening of 09/16/2020 with the nursing staff taking the telehealth camera to each patient, which was on a secure portal, discussed and reviewed the chart with Mariaelena DANIEL. He slept 5-1/2 hours previous night. He did well previous night and during the day today. Valproic acid level is 43 on Depakote ER 1000 mg p.o. h.s. Review of Systems: Ambulation impaired with walker. No CV, , pulmonary, eye system symptoms on review. Mental Status Exam: The patient is pleasant, alert, oriented, and cooperative. He is wanting to know about discharge plans and we addressed this. Speech is coherent. Abstraction fair. Computation impaired. Language function intact. Attention span short. Mood and affect improved. Laboratory Data: Reviewed. Impression: Major depressive disorder. Anxiety disorder unspecified. Plan: Continue rest of the psychotropics. Increase Depakote ER to 1500 mg p.o. h.s. Check CBC, CMP, valproic acid level in 3 days. Continue rest of the psychotropics unchanged. Assessment: Vital Signs/I&O: Vital Signs Date Time Temp Pulse Resp B/P (MAP) Pulse Ox O2 Delivery O2 Flow Rate FiO2 09/18/20 08:16 66 165/71 09/18/20 05:55 97.8 20 97 09/17/20 15:44 Room Air I & O 09/17/20 09/17/20 09/18/20 15:00 23:00 07:00 Intake Total 1080 ml 720 ml Balance 1080 ml 720 ml Current Medications: Meds: Current Medications Medications (Trade) Dose Ordered Sig/Eva Route PRN Reason Start Time Stop Time Status Last Admin Dose Admin Amlodipine Besylate (Norvasc) 5 mg DAILY PO 09/09/20 09:00 09/18/20 08:16 Aspirin (Aspirin Chewable) 81 mg DAILY PO 09/09/20 09:00 09/18/20 08:15 Donepezil HCl (Aricept) 5 mg HS PO 09/08/20 21:00 09/17/20 20:00 Gabapentin (Neurontin) 100 mg TID PO 09/08/20 21:00 09/18/20 08:15 Lisinopril (Prinivil) 10 mg DAILY PO 09/09/20 09:00 09/18/20 08:15 Loperamide HCl (Imodium) 2 mg PRN Q2HRS PRN PO DIARRHEA 09/08/20 18:30 09/17/20 21:37 Ropinirole HCl (Requip) 0.5 mg HS PO 09/08/20 21:00 09/17/20 19:59 Sertraline HCl (Zoloft) 25 mg DAILY PO 09/09/20 09:00 09/18/20 08:15 Acetaminophen (Tylenol) 650 mg PRN Q6HRS PRN PO MILD PAIN / TEMP > 100.3'F 09/08/20 18:30 Multi-Ingredient Ointment (Analgesic [place]) 1 keerthi PRN QID PRN TP MUSCLE PAIN 09/08/20 18:30 Al Hydroxide/Mg Hydroxide (Mylanta Plus Xs) 15 ml PRN AFTMEALHC PRN PO DYSPEPSIA 09/08/20 18:30 Magnesium Hydroxide (Milk Of Magnesia) 2,400 mg PRN QHS PRN PO CONSTIPATION 09/08/20 18:30 Nicotine (Nicoderm Cq 7mg Patch) 1 patch DAILY PRN TD SMOKING CESSATION 09/08/20 18:30 09/08/20 22:07 DC Nicotine Polacrilex (Nicorette Gum) 2 mg PRN Q1HR PRN BC SMOKING CESSATION 09/08/20 22:15 09/18/20 00:51 DC 09/13/20 15:28 Divalproex Sodium (Depakote Er) 500 mg QHS PO 09/09/20 21:00 09/12/20 22:01 DC 09/12/20 20:14 Risperidone (RisperDAL) 0.25 mg QHS PO 09/11/20 21:00 09/17/20 19:59 Cefdinir (Omnicef) 300 mg BID PO 09/11/20 21:00 09/17/20 22:00 DC 09/17/20 19:59 Lactobacillus Rhamnosus (Culturelle) 1 cap BID PO 09/11/20 21:00 09/18/20 08:14 Divalproex Sodium (Depakote Er) 1,000 mg QHS PO 09/13/20 21:00 09/16/20 17:47 DC 09/15/20 20:15 Nicotine (Nicoderm Cq 7mg Patch) 1 patch DAILY TD 09/13/20 19:00 09/15/20 08:28 DC 09/14/20 08:50 Nicotine (Nicoderm Cq 21mg Patch) 1 patch DAILY TD 09/15/20 09:00 09/18/20 08:13 Trazodone HCl (Desyrel) 50 mg PRN DAILY PRN PO Sleep Aid 09/15/20 18:00 09/17/20 21:39 Divalproex Sodium (Depakote Er) 1,500 mg QHS PO 09/16/20 21:00 09/17/20 20:00 I have reviewed the current psychotropics carefully including drug interactions. Risk benefit ratio favors no change other than as noted in my dictated progress note. Diagnosis: Problems: (1) Impulse control disorder, unspecified (2) Major depressive disorder with psychotic features (3) Dementia with behavioral disturbance LUISANA WAGNER MD Sep 18, 2020 09:17
[2020-09-18 15:39] VITALS: BP 133/51
[2020-09-18] MEDS ORDERED: ONDANSETRON ODT 4 MG TAB.RAPDIS PO PRN (20:45)
[2020-09-18] MEDS: DIVALPROEX ER 500 MG TAB.ER.24H PO SCH (21:45)
[2020-09-18] MEDS: traZODone 50 MG TABLET. PO PRN (21:45)
[2020-09-18] MEDS: risperiDONE 0.25 MG TABLET. PO SCH (21:45)
[2020-09-18] MEDS: rOPINIRole 0.5 MG TABLET. PO SCH (21:45)
[2020-09-18] MEDS: DONEPEZIL HCL 5 MG TABLET. PO SCH (21:45)
--- NOTE | 2020-09-18 22:05 | PDOC ---
Exam Note: Raman Note: Please also refer to the separate dictated note~for this date of service dictated separately.~Patient seen individually. Discussed the patient with Nursing staff reviewed the chart.~Reviewed interim history and current functioning. Reviewed vital signs,~Labs/ Radiology~and current medications noted below. Continue current treatment with the changes noted in the dictated addendum note Assessment: Vital Signs/I&O: Vital Signs Date Time Temp Pulse Resp B/P (MAP) Pulse Ox O2 Delivery O2 Flow Rate FiO2 09/18/20 15:39 97.9 66 18 133/51 (78) 93 09/17/20 15:44 Room Air I & O 09/17/20 09/17/20 09/18/20 15:00 23:00 07:00 Intake Total 1080 ml 720 ml Balance 1080 ml 720 ml Current Medications: Meds: Current Medications Medications (Trade) Dose Ordered Sig/Eva Route PRN Reason Start Time Stop Time Status Last Admin Dose Admin Amlodipine Besylate (Norvasc) 5 mg DAILY PO 09/09/20 09:00 09/18/20 08:16 Aspirin (Aspirin Chewable) 81 mg DAILY PO 09/09/20 09:00 09/18/20 08:15 Donepezil HCl (Aricept) 5 mg HS PO 09/08/20 21:00 09/18/20 21:45 Gabapentin (Neurontin) 100 mg TID PO 09/08/20 21:00 09/18/20 21:45 Lisinopril (Prinivil) 10 mg DAILY PO 09/09/20 09:00 09/18/20 08:15 Loperamide HCl (Imodium) 2 mg PRN Q2HRS PRN PO DIARRHEA 09/08/20 18:30 09/17/20 21:37 Ropinirole HCl (Requip) 0.5 mg HS PO 09/08/20 21:00 09/18/20 21:45 Sertraline HCl (Zoloft) 25 mg DAILY PO 09/09/20 09:00 09/18/20 08:15 Acetaminophen (Tylenol) 650 mg PRN Q6HRS PRN PO MILD PAIN / TEMP > 100.3'F 09/08/20 18:30 Multi-Ingredient Ointment (Analgesic [place]) 1 keerthi PRN QID PRN TP MUSCLE PAIN 09/08/20 18:30 Al Hydroxide/Mg Hydroxide (Mylanta Plus Xs) 15 ml PRN AFTMEALHC PRN PO DYSPEPSIA 09/08/20 18:30 Magnesium Hydroxide (Milk Of Magnesia) 2,400 mg PRN QHS PRN PO CONSTIPATION 09/08/20 18:30 Nicotine (Nicoderm Cq 7mg Patch) 1 patch DAILY PRN TD SMOKING CESSATION 09/08/20 18:30 09/08/20 22:07 DC Nicotine Polacrilex (Nicorette Gum) 2 mg PRN Q1HR PRN BC SMOKING CESSATION 09/08/20 22:15 09/18/20 00:51 DC 09/13/20 15:28 Divalproex Sodium (Depakote Er) 500 mg QHS PO 09/09/20 21:00 09/12/20 22:01 DC 09/12/20 20:14 Risperidone (RisperDAL) 0.25 mg QHS PO 09/11/20 21:00 09/18/20 21:45 Cefdinir (Omnicef) 300 mg BID PO 09/11/20 21:00 09/17/20 22:00 DC 09/17/20 19:59 Lactobacillus Rhamnosus (Culturelle) 1 cap BID PO 09/11/20 21:00 09/18/20 21:45 Divalproex Sodium (Depakote Er) 1,000 mg QHS PO 09/13/20 21:00 09/16/20 17:47 DC 09/15/20 20:15 Nicotine (Nicoderm Cq 7mg Patch) 1 patch DAILY TD 09/13/20 19:00 09/15/20 08:28 DC 09/14/20 08:50 Nicotine (Nicoderm Cq 21mg Patch) 1 patch DAILY TD 09/15/20 09:00 09/18/20 08:13 Trazodone HCl (Desyrel) 50 mg PRN DAILY PRN PO Sleep Aid 09/15/20 18:00 09/18/20 21:45 Divalproex Sodium (Depakote Er) 1,500 mg QHS PO 09/16/20 21:00 09/18/20 21:45 Ondansetron HCl (Zofran Odt) 4 mg PRN Q6HRS PRN PO NAUSEA/VOMITING 09/18/20 20:45 09/18/20 20:47 Current Medications Medications (Trade) Dose Ordered Sig/Eva Route PRN Reason Start Time Stop Time Status Last Admin Dose Admin Ondansetron HCl (Zofran Odt) 4 mg PRN Q6HRS PRN PO NAUSEA/VOMITING 09/18/20 20:45 09/18/20 20:47 I have reviewed the current psychotropics carefully including drug interactions. Risk benefit ratio favors no change other than as noted in my dictated progress note. Diagnosis: Problems: (1) Impulse control disorder, unspecified (2) Major depressive disorder with psychotic features (3) Dementia with behavioral disturbance LUISANA WAGNER MD Sep 18, 2020 22:05
[2020-09-19 05:47] VITALS: BP 169/67
[2020-09-19 06:29] LABS: BASO # 0.1 x10^3/uL (0.0-0.2); BASO % 1 % (0-3); EOS # 0.1 x10^3/uL (0.0-0.7); EOS % 2 % (0-3); HEMATOCRIT 37.8 % (39.0-53.0); HEMOGLOBIN 12.8 g/dL (13.0-17.5); LYMPH # 1.2 x10^3/uL (1.0-4.8); LYMPH % 24 % (24-48); MEAN CORPUSCULAR HEMOGLOBIN 32 pg (25-35); MEAN CORPUSCULAR HGB CONC 34 g/dL (31-37); MEAN CORPUSCULAR VOLUME 94 fL (79-100); MONO # 0.4 x10^3/uL (0.0-1.1); MONO % 9 % (0-9); NEUT # 3.2 x10^3uL (1.8-7.7); NEUT % 64 % (31-73); PLATELET COUNT 228 x10^3/uL (140-400); RED BLOOD COUNT 4.04 x10^6/uL (4.30-5.70); RED CELL DISTRIBUTION WIDTH 14.3 % (11.5-14.5); WHITE BLOOD COUNT 5.1 x10^3/uL (4.0-11.0)
[2020-09-19 06:44] LABS: ALBUMIN 2.9 g/dL (3.4-5.0); ALBUMIN/GLOBULIN RATIO 1.1 (1.0-1.7); ALK PHOS 63 U/L (46-116); ALT (SGPT) 21 U/L (16-63); ANION GAP 8 (6-14); AST (SGOT) 15 U/L (15-37); BLOOD UREA NITROGEN 15 mg/dL (8-26); BUN/CREATININE RATIO 17 (6-20); CALCIUM 8.1 mg/dL (8.5-10.1); CARBON DIOXIDE 29 mmol/L (21-32); CHLORIDE 111 mmol/L (98-107); CREATININE 0.9 mg/dL (0.7-1.3); GFR 82.5; GLUCOSE 86 mg/dL (70-99); POTASSIUM 3.7 mmol/L (3.5-5.1); SODIUM 148 mmol/L (136-145); TOTAL BILIRUBIN 0.6 mg/dL (0.2-1.0); TOTAL PROTEIN 5.6 g/dL (6.4-8.2)
[2020-09-19 06:50] LABS: VAL ACID 63 mcg/mL (50-100)
[2020-09-19] MEDS: SERTRALINE 25 MG TABLET. PO SCH (08:56)
[2020-09-19] MEDS: ASPIRIN CHEWABLE 81 MG TABLET. PO SCH (08:56)
[2020-09-19] MEDS: LACTOBACILLUS RHAMNOSUS GG 1 CAPSULE. PO SCH ×2 (08:57→20:46)
[2020-09-19] MEDS: GABAPENTIN 100 MG CAPSULE. PO SCH ×3 (08:57→20:46)
[2020-09-19] MEDS: amLODIPine BESYLATE 5 MG TABLET PO SCH (08:57)
[2020-09-19] MEDS: LISINOPRIL 10 MG TABLET PO SCH (08:57)
[2020-09-19] MEDS: NICOTINE 21MG PATCH. TD SCH (08:58)
--- NOTE | 2020-09-19 09:37 | PDOC ---
Exam Note: Raman Note: This note is a late entry for 09/17/2020 covers elements not covered in my initial note. Subjective: The patient was seen on telehealth rounds in the afternoon of 09/17/2020 with the nursing staff taking the telehealth camera to each patient, which was on a secure portal, discussed and reviewed the chart with Mariaelena DANIEL. He slept 3-1/2 hours previous night. Overall the patient is doing quite well. He has been talking about discharge plans and I addressed with him. Valproic acid level will be repeated on 09/19. Review of Systems: Ambulation impaired with walker. No CV, , pulmonary, eye system symptoms on review. Mental Status Exam: The patient is pleasant, verbal and interactive. Speech is coherent. Abstraction fair. Computation impaired. Language function intact. Attention span short. Mood appears stable and affect is mood congruent. No suicidal or homicidal ideation. Laboratory Data: Reviewed. Impression: Major depressive disorder. Anxiety disorder unspecified. Plan: Continue psychotropics from initial note. Start trazodone 50 mg h.s. p. r.n. insomnia, may repeat x1. Assessment: Vital Signs/I&O: Vital Signs Date Time Temp Pulse Resp B/P (MAP) Pulse Ox O2 Delivery O2 Flow Rate FiO2 09/19/20 08:57 59 169/67 09/19/20 05:47 97.5 16 97 09/17/20 15:44 Room Air I & O 09/18/20 09/18/20 09/19/20 15:00 23:00 07:00 Intake Total 840 ml 600 ml Balance 840 ml 600 ml Labs: Laboratory Tests Test 09/19/20 06:00 White Blood Count 5.1 x10^3/uL (4.0-11.0) Red Blood Count 4.04 x10^6/uL (4.30-5.70) L Hemoglobin 12.8 g/dL (13.0-17.5) L Hematocrit 37.8 % (39.0-53.0) L Mean Corpuscular Volume 94 fL (79-100) Mean Corpuscular Hemoglobin 32 pg (25-35) Mean Corpuscular Hemoglobin Concent 34 g/dL (31-37) Red Cell Distribution Width 14.3 % (11.5-14.5) Platelet Count 228 x10^3/uL (140-400) Neutrophils (%) (Auto) 64 % (31-73) Lymphocytes (%) (Auto) 24 % (24-48) Monocytes (%) (Auto) 9 % (0-9) Eosinophils (%) (Auto) 2 % (0-3) Basophils (%) (Auto) 1 % (0-3) Neutrophils # (Auto) 3.2 x10^3uL (1.8-7.7) Lymphocytes # (Auto) 1.2 x10^3/uL (1.0-4.8) Monocytes # (Auto) 0.4 x10^3/uL (0.0-1.1) Eosinophils # (Auto) 0.1 x10^3/uL (0.0-0.7) Basophils # (Auto) 0.1 x10^3/uL (0.0-0.2) Sodium Level 148 mmol/L (136-145) H Potassium Level 3.7 mmol/L (3.5-5.1) Chloride Level 111 mmol/L (98-107) H Carbon Dioxide Level 29 mmol/L (21-32) Anion Gap 8 (6-14) Blood Urea Nitrogen 15 mg/dL (8-26) Creatinine 0.9 mg/dL (0.7-1.3) Estimated GFR (Cockcroft-Gault) 82.5 BUN/Creatinine Ratio 17 (6-20) Glucose Level 86 mg/dL (70-99) Calcium Level 8.1 mg/dL (8.5-10.1) L Total Bilirubin 0.6 mg/dL (0.2-1.0) Aspartate Amino Transferase (AST) 15 U/L (15-37) Alanine Aminotransferase (ALT) 21 U/L (16-63) Alkaline Phosphatase 63 U/L (46-116) Total Protein 5.6 g/dL (6.4-8.2) L Albumin 2.9 g/dL (3.4-5.0) L Albumin/Globulin Ratio 1.1 (1.0-1.7) Valproic Acid Level 63 mcg/mL (50-100) Valproic Acid Last Dose Date 09/18/20 Valproic Acid Last Dose Time 2100 Current Medications: Meds: Laboratory Tests Test 09/19/20 06:00 White Blood Count 5.1 x10^3/uL Red Blood Count 4.04 x10^6/uL Hemoglobin 12.8 g/dL Hematocrit 37.8 % Mean Corpuscular Volume 94 fL Mean Corpuscular Hemoglobin 32 pg Mean Corpuscular Hemoglobin Concent 34 g/dL Red Cell Distribution Width 14.3 % Platelet Count 228 x10^3/uL Neutrophils (%) (Auto) 64 % Lymphocytes (%) (Auto) 24 % Monocytes (%) (Auto) 9 % Eosinophils (%) (Auto) 2 % Basophils (%) (Auto) 1 % Neutrophils # (Auto) 3.2 x10^3uL Lymphocytes # (Auto) 1.2 x10^3/uL Monocytes # (Auto) 0.4 x10^3/uL Eosinophils # (Auto) 0.1 x10^3/uL Basophils # (Auto) 0.1 x10^3/uL Sodium Level 148 mmol/L Potassium Level 3.7 mmol/L Chloride Level 111 mmol/L Carbon Dioxide Level 29 mmol/L Anion Gap 8 Blood Urea Nitrogen 15 mg/dL Creatinine 0.9 mg/dL Estimated GFR (Cockcroft-Gault) 82.5 BUN/Creatinine Ratio 17 Glucose Level 86 mg/dL Calcium Level 8.1 mg/dL Total Bilirubin 0.6 mg/dL Aspartate Amino Transf (AST/SGOT) 15 U/L Alanine Aminotransferase (ALT/SGPT) 21 U/L Alkaline Phosphatase 63 U/L Total Protein 5.6 g/dL Albumin 2.9 g/dL Albumin/Globulin Ratio 1.1 Valproic Acid (Depakene) Level 63 mcg/mL Valproic Acid Last Dose Date 09/18/20 Valproic Acid Last Dose Time 2100 Current Medications Medications (Trade) Dose Ordered Sig/Eva Route PRN Reason Start Time Stop Time Status Last Admin Dose Admin Amlodipine Besylate (Norvasc) 5 mg DAILY PO 09/09/20 09:00 09/19/20 08:57 Aspirin (Aspirin Chewable) 81 mg DAILY PO 09/09/20 09:00 09/19/20 08:56 Donepezil HCl (Aricept) 5 mg HS PO 09/08/20 21:00 09/18/20 21:45 Gabapentin (Neurontin) 100 mg TID PO 09/08/20 21:00 09/19/20 08:57 Lisinopril (Prinivil) 10 mg DAILY PO 09/09/20 09:00 09/19/20 08:57 Loperamide HCl (Imodium) 2 mg PRN Q2HRS PRN PO DIARRHEA 09/08/20 18:30 09/17/20 21:37 Ropinirole HCl (Requip) 0.5 mg HS PO 09/08/20 21:00 09/18/20 21:45 Sertraline HCl (Zoloft) 25 mg DAILY PO 09/09/20 09:00 09/19/20 08:56 Acetaminophen (Tylenol) 650 mg PRN Q6HRS PRN PO MILD PAIN / TEMP > 100.3'F 09/08/20 18:30 Multi-Ingredient Ointment (Analgesic [place]) 1 keerthi PRN QID PRN TP MUSCLE PAIN 09/08/20 18:30 Al Hydroxide/Mg Hydroxide (Mylanta Plus Xs) 15 ml PRN AFTMEALHC PRN PO DYSPEPSIA 09/08/20 18:30 Magnesium Hydroxide (Milk Of Magnesia) 2,400 mg PRN QHS PRN PO CONSTIPATION 09/08/20 18:30 Nicotine (Nicoderm Cq 7mg Patch) 1 patch DAILY PRN TD SMOKING CESSATION 09/08/20 18:30 09/08/20 22:07 DC Nicotine Polacrilex (Nicorette Gum) 2 mg PRN Q1HR PRN BC SMOKING CESSATION 09/08/20 22:15 09/18/20 00:51 DC 09/13/20 15:28 Divalproex Sodium (Depakote Er) 500 mg QHS PO 09/09/20 21:00 09/12/20 22:01 DC 09/12/20 20:14 Risperidone (RisperDAL) 0.25 mg QHS PO 09/11/20 21:00 09/18/20 21:45 Cefdinir (Omnicef) 300 mg BID PO 09/11/20 21:00 09/17/20 22:00 DC 09/17/20 19:59 Lactobacillus Rhamnosus (Culturelle) 1 cap BID PO 09/11/20 21:00 09/19/20 08:57 Divalproex Sodium (Depakote Er) 1,000 mg QHS PO 09/13/20 21:00 09/16/20 17:47 DC 09/15/20 20:15 Nicotine (Nicoderm Cq 7mg Patch) 1 patch DAILY TD 09/13/20 19:00 09/15/20 08:28 DC 09/14/20 08:50 Nicotine (Nicoderm Cq 21mg Patch) 1 patch DAILY TD 09/15/20 09:00 09/19/20 08:58 Trazodone HCl (Desyrel) 50 mg PRN DAILY PRN PO Sleep Aid 09/15/20 18:00 09/18/20 21:45 Divalproex Sodium (Depakote Er) 1,500 mg QHS PO 09/16/20 21:00 09/18/20 21:45 Ondansetron HCl (Zofran Odt) 4 mg PRN Q6HRS PRN PO NAUSEA/VOMITING 09/18/20 20:45 09/18/20 20:47 Current Medications Medications (Trade) Dose Ordered Sig/Eva Route PRN Reason Start Time Stop Time Status Last Admin Dose Admin Ondansetron HCl (Zofran Odt) 4 mg PRN Q6HRS PRN PO NAUSEA/VOMITING 09/18/20 20:45 09/18/20 20:47 I have reviewed the current psychotropics carefully including drug interactions. Risk benefit ratio favors no change other than as noted in my dictated progress note. Diagnosis: Problems: (1) Impulse control disorder, unspecified (2) Major depressive disorder with psychotic features (3) Dementia with behavioral disturbance LUISANA WAGNER MD Sep 19, 2020 09:37
--- NOTE | 2020-09-19 10:06 | PDOC ---
Exam Note: Raman Note: This note is a late entry for 09/18/2020 covers elements not covered in my initial note. Subjective: The patient was reviewed on telehealth rounds in the afternoon of 09/18/2020 for a treatment team meeting with Dariana Conde, Fabi Chiu (addiction social worker), Kiana, activity therapy and Mariaelena DANIEL, discussed and reviewed the chart. He slept 7-3/4 hours previous night. Overall the patient is doing well. He is tolerating the current psychotropics. He states the representatives from [facility] met with him and seemed agreeable to this transition and will be addressed individually. Review of Systems: Ambulation impaired with walker. No CV, , pulmonary, eye system symptoms on review. Mental Status Exam: The patient is pleasant, verbal and interactive. Speech is coherent. Abstraction fair. Computation impaired. Language function intact. Attention span short. Mood appears stable and affect is mood congruent. No suicidal or homicidal ideation. Laboratory Data: Reviewed. Impression: Major depressive disorder. Anxiety disorder unspecified. Plan: Continue psychotropics from initial note. Once placement option is confirmed, we will go ahead with the transition. Assessment: Vital Signs/I&O: Vital Signs Date Time Temp Pulse Resp B/P (MAP) Pulse Ox O2 Delivery O2 Flow Rate FiO2 09/19/20 08:57 59 169/67 09/19/20 05:47 97.5 16 97 09/17/20 15:44 Room Air I & O 09/18/20 09/18/20 09/19/20 15:00 23:00 07:00 Intake Total 840 ml 600 ml Balance 840 ml 600 ml Labs: Laboratory Tests Test 09/19/20 06:00 White Blood Count 5.1 x10^3/uL (4.0-11.0) Red Blood Count 4.04 x10^6/uL (4.30-5.70) L Hemoglobin 12.8 g/dL (13.0-17.5) L Hematocrit 37.8 % (39.0-53.0) L Mean Corpuscular Volume 94 fL (79-100) Mean Corpuscular Hemoglobin 32 pg (25-35) Mean Corpuscular Hemoglobin Concent 34 g/dL (31-37) Red Cell Distribution Width 14.3 % (11.5-14.5) Platelet Count 228 x10^3/uL (140-400) Neutrophils (%) (Auto) 64 % (31-73) Lymphocytes (%) (Auto) 24 % (24-48) Monocytes (%) (Auto) 9 % (0-9) Eosinophils (%) (Auto) 2 % (0-3) Basophils (%) (Auto) 1 % (0-3) Neutrophils # (Auto) 3.2 x10^3uL (1.8-7.7) Lymphocytes # (Auto) 1.2 x10^3/uL (1.0-4.8) Monocytes # (Auto) 0.4 x10^3/uL (0.0-1.1) Eosinophils # (Auto) 0.1 x10^3/uL (0.0-0.7) Basophils # (Auto) 0.1 x10^3/uL (0.0-0.2) Sodium Level 148 mmol/L (136-145) H Potassium Level 3.7 mmol/L (3.5-5.1) Chloride Level 111 mmol/L (98-107) H Carbon Dioxide Level 29 mmol/L (21-32) Anion Gap 8 (6-14) Blood Urea Nitrogen 15 mg/dL (8-26) Creatinine 0.9 mg/dL (0.7-1.3) Estimated GFR (Cockcroft-Gault) 82.5 BUN/Creatinine Ratio 17 (6-20) Glucose Level 86 mg/dL (70-99) Calcium Level 8.1 mg/dL (8.5-10.1) L Total Bilirubin 0.6 mg/dL (0.2-1.0) Aspartate Amino Transferase (AST) 15 U/L (15-37) Alanine Aminotransferase (ALT) 21 U/L (16-63) Alkaline Phosphatase 63 U/L (46-116) Total Protein 5.6 g/dL (6.4-8.2) L Albumin 2.9 g/dL (3.4-5.0) L Albumin/Globulin Ratio 1.1 (1.0-1.7) Valproic Acid Level 63 mcg/mL (50-100) Valproic Acid Last Dose Date 09/18/20 Valproic Acid Last Dose Time 2100 Current Medications: Meds: Laboratory Tests Test 09/19/20 06:00 White Blood Count 5.1 x10^3/uL Red Blood Count 4.04 x10^6/uL Hemoglobin 12.8 g/dL Hematocrit 37.8 % Mean Corpuscular Volume 94 fL Mean Corpuscular Hemoglobin 32 pg Mean Corpuscular Hemoglobin Concent 34 g/dL Red Cell Distribution Width 14.3 % Platelet Count 228 x10^3/uL Neutrophils (%) (Auto) 64 % Lymphocytes (%) (Auto) 24 % Monocytes (%) (Auto) 9 % Eosinophils (%) (Auto) 2 % Basophils (%) (Auto) 1 % Neutrophils # (Auto) 3.2 x10^3uL Lymphocytes # (Auto) 1.2 x10^3/uL Monocytes # (Auto) 0.4 x10^3/uL Eosinophils # (Auto) 0.1 x10^3/uL Basophils # (Auto) 0.1 x10^3/uL Sodium Level 148 mmol/L Potassium Level 3.7 mmol/L Chloride Level 111 mmol/L Carbon Dioxide Level 29 mmol/L Anion Gap 8 Blood Urea Nitrogen 15 mg/dL Creatinine 0.9 mg/dL Estimated GFR (Cockcroft-Gault) 82.5 BUN/Creatinine Ratio 17 Glucose Level 86 mg/dL Calcium Level 8.1 mg/dL Total Bilirubin 0.6 mg/dL Aspartate Amino Transf (AST/SGOT) 15 U/L Alanine Aminotransferase (ALT/SGPT) 21 U/L Alkaline Phosphatase 63 U/L Total Protein 5.6 g/dL Albumin 2.9 g/dL Albumin/Globulin Ratio 1.1 Valproic Acid (Depakene) Level 63 mcg/mL Valproic Acid Last Dose Date 09/18/20 Valproic Acid Last Dose Time 2100 Current Medications Medications (Trade) Dose Ordered Sig/Eva Route PRN Reason Start Time Stop Time Status Last Admin Dose Admin Amlodipine Besylate (Norvasc) 5 mg DAILY PO 09/09/20 09:00 09/19/20 08:57 Aspirin (Aspirin Chewable) 81 mg DAILY PO 09/09/20 09:00 09/19/20 08:56 Donepezil HCl (Aricept) 5 mg HS PO 09/08/20 21:00 09/18/20 21:45 Gabapentin (Neurontin) 100 mg TID PO 09/08/20 21:00 09/19/20 08:57 Lisinopril (Prinivil) 10 mg DAILY PO 09/09/20 09:00 09/19/20 08:57 Loperamide HCl (Imodium) 2 mg PRN Q2HRS PRN PO DIARRHEA 09/08/20 18:30 09/17/20 21:37 Ropinirole HCl (Requip) 0.5 mg HS PO 09/08/20 21:00 09/18/20 21:45 Sertraline HCl (Zoloft) 25 mg DAILY PO 09/09/20 09:00 09/19/20 08:56 Acetaminophen (Tylenol) 650 mg PRN Q6HRS PRN PO MILD PAIN / TEMP > 100.3'F 09/08/20 18:30 Multi-Ingredient Ointment (Analgesic [place]) 1 keerthi PRN QID PRN TP MUSCLE PAIN 09/08/20 18:30 Al Hydroxide/Mg Hydroxide (Mylanta Plus Xs) 15 ml PRN AFTMEALHC PRN PO DYSPEPSIA 09/08/20 18:30 Magnesium Hydroxide (Milk Of Magnesia) 2,400 mg PRN QHS PRN PO CONSTIPATION 09/08/20 18:30 Nicotine (Nicoderm Cq 7mg Patch) 1 patch DAILY PRN TD SMOKING CESSATION 09/08/20 18:30 09/08/20 22:07 DC Nicotine Polacrilex (Nicorette Gum) 2 mg PRN Q1HR PRN BC SMOKING CESSATION 09/08/20 22:15 09/18/20 00:51 DC 09/13/20 15:28 Divalproex Sodium (Depakote Er) 500 mg QHS PO 09/09/20 21:00 09/12/20 22:01 DC 09/12/20 20:14 Risperidone (RisperDAL) 0.25 mg QHS PO 09/11/20 21:00 09/18/20 21:45 Cefdinir (Omnicef) 300 mg BID PO 09/11/20 21:00 09/17/20 22:00 DC 09/17/20 19:59 Lactobacillus Rhamnosus (Culturelle) 1 cap BID PO 09/11/20 21:00 09/19/20 08:57 Divalproex Sodium (Depakote Er) 1,000 mg QHS PO 09/13/20 21:00 09/16/20 17:47 DC 09/15/20 20:15 Nicotine (Nicoderm Cq 7mg Patch) 1 patch DAILY TD 09/13/20 19:00 09/15/20 08:28 DC 09/14/20 08:50 Nicotine (Nicoderm Cq 21mg Patch) 1 patch DAILY TD 09/15/20 09:00 09/19/20 08:58 Trazodone HCl (Desyrel) 50 mg PRN DAILY PRN PO Sleep Aid 09/15/20 18:00 09/18/20 21:45 Divalproex Sodium (Depakote Er) 1,500 mg QHS PO 09/16/20 21:00 09/18/20 21:45 Ondansetron HCl (Zofran Odt) 4 mg PRN Q6HRS PRN PO NAUSEA/VOMITING 09/18/20 20:45 09/18/20 20:47 Current Medications Medications (Trade) Dose Ordered Sig/Eva Route PRN Reason Start Time Stop Time Status Last Admin Dose Admin Ondansetron HCl (Zofran Odt) 4 mg PRN Q6HRS PRN PO NAUSEA/VOMITING 09/18/20 20:45 09/18/20 20:47 I have reviewed the current psychotropics carefully including drug interactions. Risk benefit ratio favors no change other than as noted in my dictated progress note. 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
[2020-09-19 15:59] VITALS: BP 152/68
[2020-09-19] MEDS: risperiDONE 0.25 MG TABLET. PO SCH (20:46)
[2020-09-19] MEDS: traZODone 50 MG TABLET. PO PRN (20:46)
[2020-09-19] MEDS: DIVALPROEX ER 500 MG TAB.ER.24H PO SCH (20:46)
[2020-09-19] MEDS: DONEPEZIL HCL 5 MG TABLET. PO SCH (20:46)
[2020-09-19] MEDS: rOPINIRole 0.5 MG TABLET. PO SCH (20:46)
[2020-09-19] MEDS: LOPERAMIDE 2 MG CAPSULE PO PRN (20:49)
--- NOTE | 2020-09-19 22:04 | PDOC ---
Exam Note: Raman Note: Please also refer to the separate dictated note~for this date of service dictated separately.~Patient seen individually. Discussed the patient with Nursing staff reviewed the chart.~Reviewed interim history and current functioning. Reviewed vital signs,~Labs/ Radiology~and current medications noted below. Continue current treatment with the changes noted in the dictated addendum note Assessment: Vital Signs/I&O: Vital Signs Date Time Temp Pulse Resp B/P (MAP) Pulse Ox O2 Delivery O2 Flow Rate FiO2 09/19/20 15:59 97.9 54 18 152/68 (96) 97 09/17/20 15:44 Room Air I & O 09/18/20 09/18/20 09/19/20 14:59 22:59 06:59 Intake Total 840 ml 600 ml Balance 840 ml 600 ml Labs: Laboratory Tests Test 09/19/20 06:00 White Blood Count 5.1 x10^3/uL (4.0-11.0) Red Blood Count 4.04 x10^6/uL (4.30-5.70) L Hemoglobin 12.8 g/dL (13.0-17.5) L Hematocrit 37.8 % (39.0-53.0) L Mean Corpuscular Volume 94 fL (79-100) Mean Corpuscular Hemoglobin 32 pg (25-35) Mean Corpuscular Hemoglobin Concent 34 g/dL (31-37) Red Cell Distribution Width 14.3 % (11.5-14.5) Platelet Count 228 x10^3/uL (140-400) Neutrophils (%) (Auto) 64 % (31-73) Lymphocytes (%) (Auto) 24 % (24-48) Monocytes (%) (Auto) 9 % (0-9) Eosinophils (%) (Auto) 2 % (0-3) Basophils (%) (Auto) 1 % (0-3) Neutrophils # (Auto) 3.2 x10^3uL (1.8-7.7) Lymphocytes # (Auto) 1.2 x10^3/uL (1.0-4.8) Monocytes # (Auto) 0.4 x10^3/uL (0.0-1.1) Eosinophils # (Auto) 0.1 x10^3/uL (0.0-0.7) Basophils # (Auto) 0.1 x10^3/uL (0.0-0.2) Sodium Level 148 mmol/L (136-145) H Potassium Level 3.7 mmol/L (3.5-5.1) Chloride Level 111 mmol/L (98-107) H Carbon Dioxide Level 29 mmol/L (21-32) Anion Gap 8 (6-14) Blood Urea Nitrogen 15 mg/dL (8-26) Creatinine 0.9 mg/dL (0.7-1.3) Estimated GFR (Cockcroft-Gault) 82.5 BUN/Creatinine Ratio 17 (6-20) Glucose Level 86 mg/dL (70-99) Calcium Level 8.1 mg/dL (8.5-10.1) L Total Bilirubin 0.6 mg/dL (0.2-1.0) Aspartate Amino Transferase (AST) 15 U/L (15-37) Alanine Aminotransferase (ALT) 21 U/L (16-63) Alkaline Phosphatase 63 U/L (46-116) Total Protein 5.6 g/dL (6.4-8.2) L Albumin 2.9 g/dL (3.4-5.0) L Albumin/Globulin Ratio 1.1 (1.0-1.7) Valproic Acid Level 63 mcg/mL (50-100) Valproic Acid Last Dose Date 09/18/20 Valproic Acid Last Dose Time 2100 Current Medications: Meds: Laboratory Tests Test 09/19/20 06:00 White Blood Count 5.1 x10^3/uL Red Blood Count 4.04 x10^6/uL Hemoglobin 12.8 g/dL Hematocrit 37.8 % Mean Corpuscular Volume 94 fL Mean Corpuscular Hemoglobin 32 pg Mean Corpuscular Hemoglobin Concent 34 g/dL Red Cell Distribution Width 14.3 % Platelet Count 228 x10^3/uL Neutrophils (%) (Auto) 64 % Lymphocytes (%) (Auto) 24 % Monocytes (%) (Auto) 9 % Eosinophils (%) (Auto) 2 % Basophils (%) (Auto) 1 % Neutrophils # (Auto) 3.2 x10^3uL Lymphocytes # (Auto) 1.2 x10^3/uL Monocytes # (Auto) 0.4 x10^3/uL Eosinophils # (Auto) 0.1 x10^3/uL Basophils # (Auto) 0.1 x10^3/uL Sodium Level 148 mmol/L Potassium Level 3.7 mmol/L Chloride Level 111 mmol/L Carbon Dioxide Level 29 mmol/L Anion Gap 8 Blood Urea Nitrogen 15 mg/dL Creatinine 0.9 mg/dL Estimated GFR (Cockcroft-Gault) 82.5 BUN/Creatinine Ratio 17 Glucose Level 86 mg/dL Calcium Level 8.1 mg/dL Total Bilirubin 0.6 mg/dL Aspartate Amino Transf (AST/SGOT) 15 U/L Alanine Aminotransferase (ALT/SGPT) 21 U/L Alkaline Phosphatase 63 U/L Total Protein 5.6 g/dL Albumin 2.9 g/dL Albumin/Globulin Ratio 1.1 Valproic Acid (Depakene) Level 63 mcg/mL Valproic Acid Last Dose Date 09/18/20 Valproic Acid Last Dose Time 2100 Current Medications Medications (Trade) Dose Ordered Sig/Eva Route PRN Reason Start Time Stop Time Status Last Admin Dose Admin Amlodipine Besylate (Norvasc) 5 mg DAILY PO 09/09/20 09:00 09/19/20 08:57 Aspirin (Aspirin Chewable) 81 mg DAILY PO 09/09/20 09:00 09/19/20 08:56 Donepezil HCl (Aricept) 5 mg HS PO 09/08/20 21:00 09/19/20 20:46 Gabapentin (Neurontin) 100 mg TID PO 09/08/20 21:00 09/19/20 20:46 Lisinopril (Prinivil) 10 mg DAILY PO 09/09/20 09:00 09/19/20 08:57 Loperamide HCl (Imodium) 2 mg PRN Q2HRS PRN PO DIARRHEA 09/08/20 18:30 09/19/20 20:49 Ropinirole HCl (Requip) 0.5 mg HS PO 09/08/20 21:00 09/19/20 20:46 Sertraline HCl (Zoloft) 25 mg DAILY PO 09/09/20 09:00 09/19/20 08:56 Acetaminophen (Tylenol) 650 mg PRN Q6HRS PRN PO MILD PAIN / TEMP > 100.3'F 09/08/20 18:30 Multi-Ingredient Ointment (Analgesic [place]) 1 keerthi PRN QID PRN TP MUSCLE PAIN 09/08/20 18:30 Al Hydroxide/Mg Hydroxide (Mylanta Plus Xs) 15 ml PRN AFTMEALHC PRN PO DYSPEPSIA 09/08/20 18:30 Magnesium Hydroxide (Milk Of Magnesia) 2,400 mg PRN QHS PRN PO CONSTIPATION 09/08/20 18:30 Nicotine (Nicoderm Cq 7mg Patch) 1 patch DAILY PRN TD SMOKING CESSATION 09/08/20 18:30 09/08/20 22:07 DC Nicotine Polacrilex (Nicorette Gum) 2 mg PRN Q1HR PRN BC SMOKING CESSATION 09/08/20 22:15 09/18/20 00:51 DC 09/13/20 15:28 Divalproex Sodium (Depakote Er) 500 mg QHS PO 09/09/20 21:00 09/12/20 22:01 DC 09/12/20 20:14 Risperidone (RisperDAL) 0.25 mg QHS PO 09/11/20 21:00 09/19/20 20:46 Cefdinir (Omnicef) 300 mg BID PO 09/11/20 21:00 09/17/20 22:00 DC 09/17/20 19:59 Lactobacillus Rhamnosus (Culturelle) 1 cap BID PO 09/11/20 21:00 09/19/20 20:46 Divalproex Sodium (Depakote Er) 1,000 mg QHS PO 09/13/20 21:00 09/16/20 17:47 DC 09/15/20 20:15 Nicotine (Nicoderm Cq 7mg Patch) 1 patch DAILY TD 09/13/20 19:00 09/15/20 08:28 DC 09/14/20 08:50 Nicotine (Nicoderm Cq 21mg Patch) 1 patch DAILY TD 09/15/20 09:00 09/19/20 08:58 Trazodone HCl (Desyrel) 50 mg PRN DAILY PRN PO Sleep Aid 09/15/20 18:00 09/19/20 20:46 Divalproex Sodium (Depakote Er) 1,500 mg QHS PO 09/16/20 21:00 09/19/20 20:46 Ondansetron HCl (Zofran Odt) 4 mg PRN Q6HRS PRN PO NAUSEA/VOMITING 09/18/20 20:45 09/18/20 20:47 I have reviewed the current psychotropics carefully including drug interactions. Risk benefit ratio favors no change other than as noted in my dictated progress note. Diagnosis: Problems: (1) Impulse control disorder, unspecified (2) Major depressive disorder with psychotic features (3) Dementia with behavioral disturbance (4) Anxiety disorder, unspecified LUISANA WAGNER MD Sep 19, 2020 22:04
[2020-09-20] MEDS ORDERED: ACET325T21 PO (00:31)
[2020-09-20] MEDS ORDERED: DIVA500T17 PO (00:33)
[2020-09-20] MEDS ORDERED: MAG-124 PO (00:35)
[2020-09-20] MEDS ORDERED: MAGN24003 PO (00:35)
[2020-09-20] MEDS ORDERED: METH57CR17 TP (00:35)
[2020-09-20] MEDS ORDERED: NICO1PAT21 TP (00:36)
[2020-09-20] MEDS ORDERED: ONDA4TAB12 PO (00:37)
[2020-09-20] MEDS ORDERED: RISP0.253 PO (00:38)
[2020-09-20] MEDS ORDERED: TRAZ-120 PO (00:38)
[2020-09-20 05:44] VITALS: BP 182/72
[2020-09-20] MEDS: NICOTINE 21MG PATCH. TD SCH (08:34)
[2020-09-20] MEDS: LACTOBACILLUS RHAMNOSUS GG 1 CAPSULE. PO SCH (08:34)
[2020-09-20] MEDS: SERTRALINE 25 MG TABLET. PO SCH (08:35)
[2020-09-20] MEDS: GABAPENTIN 100 MG CAPSULE. PO SCH (08:35)
[2020-09-20 08:36] VITALS: BP 182/72
[2020-09-20] MEDS: amLODIPine BESYLATE 5 MG TABLET PO SCH (08:36)
[2020-09-20] MEDS: LISINOPRIL 10 MG TABLET PO SCH (08:36)
[2020-09-20] MEDS: ASPIRIN CHEWABLE 81 MG TABLET. PO SCH (08:36)
--- NOTE | 2020-09-21 09:10 | PDOC ---
Exam Note: Raman Note: This note is a late entry for 09/19/2020 covers elements not covered in my initial note. Subjective: The patient was seen on telehealth rounds in the afternoon of 09/19/2020 with the nursing staff taking the telehealth camera to each patient, which was on a secure portal, discussed and reviewed the chart with Judith DANIEL. He slept 7-3/4 hours previous night. The patients valproic acid level is therapeutic at 68. He has been accepted at [facility] and will be transitioned there on 09/20. He has had some nausea previous evening, managed by Zofran, better during the day on 09/19. Review of Systems: Ambulation impaired with walker. No CV, , pulmonary, eye, ENT system symptoms on review. Mental Status Exam: The patient is pleasant, verbal and interactive. Discussed discharge plans. He was wanting to know if I would come and see him at [facility] and he believes this is a short term placement and accepting of it. I assured him his primary care physician would be following him there. He is quite appropriate. Abstraction fair. Computation impaired. Language function intact. Attention span short. Mood and affect stable. No suicidal or homicidal ideation. Laboratory Data: Reviewed. Impression: Major depressive disorder. Anxiety disorder unspecified. Plan: He has been accepted at [facility] and will be transitioned there on 09/20. Assessment: Vital Signs/I&O: Vital Signs Date Time Temp Pulse Resp B/P (MAP) Pulse Ox O2 Delivery O2 Flow Rate FiO2 09/20/20 08:36 66 182/72 09/20/20 05:44 97.4 18 97 09/17/20 15:44 Room Air I & O 09/20/20 09/20/20 09/21/20 15:00 23:00 07:00 Intake Total 720 ml Balance 720 ml Current Medications: Meds: Current Medications Medications (Trade) Dose Ordered Sig/Eva Route PRN Reason Start Time Stop Time Status Last Admin Dose Admin Amlodipine Besylate (Norvasc) 5 mg DAILY PO 09/09/20 09:00 09/20/20 15:35 DC 09/20/20 08:36 Aspirin (Aspirin Chewable) 81 mg DAILY PO 09/09/20 09:00 09/20/20 15:35 DC 09/20/20 08:36 Donepezil HCl (Aricept) 5 mg HS PO 09/08/20 21:00 09/20/20 15:35 DC 09/19/20 20:46 Gabapentin (Neurontin) 100 mg TID PO 09/08/20 21:00 09/20/20 15:35 DC 09/20/20 08:35 Lisinopril (Prinivil) 10 mg DAILY PO 09/09/20 09:00 09/20/20 15:35 DC 09/20/20 08:36 Loperamide HCl (Imodium) 2 mg PRN Q2HRS PRN PO DIARRHEA 09/08/20 18:30 09/20/20 15:35 DC 09/19/20 20:49 Ropinirole HCl (Requip) 0.5 mg HS PO 09/08/20 21:00 09/20/20 15:35 DC 09/19/20 20:46 Sertraline HCl (Zoloft) 25 mg DAILY PO 09/09/20 09:00 09/20/20 15:35 DC 09/20/20 08:35 Acetaminophen (Tylenol) 650 mg PRN Q6HRS PRN PO MILD PAIN / TEMP > 100.3'F 09/08/20 18:30 09/20/20 15:35 DC Multi-Ingredient Ointment (Analgesic [place]) 1 keerthi PRN QID PRN TP MUSCLE PAIN 09/08/20 18:30 09/20/20 15:35 DC Al Hydroxide/Mg Hydroxide (Mylanta Plus Xs) 15 ml PRN AFTMEALHC PRN PO DYSPEPSIA 09/08/20 18:30 09/20/20 15:35 DC Magnesium Hydroxide (Milk Of Magnesia) 2,400 mg PRN QHS PRN PO CONSTIPATION 09/08/20 18:30 09/20/20 15:35 DC Nicotine (Nicoderm Cq 7mg Patch) 1 patch DAILY PRN TD SMOKING CESSATION 09/08/20 18:30 09/08/20 22:07 DC Nicotine Polacrilex (Nicorette Gum) 2 mg PRN Q1HR PRN BC SMOKING CESSATION 09/08/20 22:15 09/18/20 00:51 DC 09/13/20 15:28 Divalproex Sodium (Depakote Er) 500 mg QHS PO 09/09/20 21:00 09/12/20 22:01 DC 09/12/20 20:14 Risperidone (RisperDAL) 0.25 mg QHS PO 09/11/20 21:00 09/20/20 15:35 DC 09/19/20 20:46 Cefdinir (Omnicef) 300 mg BID PO 09/11/20 21:00 09/17/20 22:00 DC 09/17/20 19:59 Lactobacillus Rhamnosus (Culturelle) 1 cap BID PO 09/11/20 21:00 09/20/20 15:35 DC 09/20/20 08:34 Divalproex Sodium (Depakote Er) 1,000 mg QHS PO 09/13/20 21:00 09/16/20 17:47 DC 09/15/20 20:15 Nicotine (Nicoderm Cq 7mg Patch) 1 patch DAILY TD 09/13/20 19:00 09/15/20 08:28 DC 09/14/20 08:50 Nicotine (Nicoderm Cq 21mg Patch) 1 patch DAILY TD 09/15/20 09:00 09/20/20 15:35 DC 09/20/20 08:34 Trazodone HCl (Desyrel) 50 mg PRN DAILY PRN PO Sleep Aid 09/15/20 18:00 09/20/20 15:35 DC 09/19/20 20:46 Divalproex Sodium (Depakote Er) 1,500 mg QHS PO 09/16/20 21:00 09/20/20 15:35 DC 09/19/20 20:46 Ondansetron HCl (Zofran Odt) 4 mg PRN Q6HRS PRN PO NAUSEA/VOMITING 09/18/20 20:45 09/20/20 15:35 DC 09/18/20 20:47 I have reviewed the current psychotropics carefully including drug interactions. Risk benefit ratio favors no change other than as noted in my dictated progress note. Diagnosis: Problems: (1) Impulse control disorder, unspecified (2) Major depressive disorder with psychotic features (3) Dementia with behavioral disturbance (4) Anxiety disorder, unspecified LUISANA WAGNER MD Sep 21, 2020 09:10
--- NOTE | 2020-09-21 09:10 | PDOC ---
Exam Note: Raman Note: This is a late entry for date of discharge 09/20/2020. Please also refer to the separate dictated note~for this date of service dictated separately.~Patient seen individually. Discussed the patient with Nursing staff reviewed the chart.~Reviewed interim history and current functioning. Reviewed vital signs,~Labs/ Radiology~and current medications noted below. Continue current treatment with the changes noted in the dictated addendum note Assessment: Vital Signs/I&O: Vital Signs Date Time Temp Pulse Resp B/P (MAP) Pulse Ox O2 Delivery O2 Flow Rate FiO2 09/20/20 08:36 66 182/72 09/20/20 05:44 97.4 18 97 09/17/20 15:44 Room Air I & O 09/20/20 09/20/20 09/21/20 15:00 23:00 07:00 Intake Total 720 ml Balance 720 ml Current Medications: Meds: Current Medications Medications (Trade) Dose Ordered Sig/Eva Route PRN Reason Start Time Stop Time Status Last Admin Dose Admin Amlodipine Besylate (Norvasc) 5 mg DAILY PO 09/09/20 09:00 09/20/20 15:35 DC 09/20/20 08:36 Aspirin (Aspirin Chewable) 81 mg DAILY PO 09/09/20 09:00 09/20/20 15:35 DC 09/20/20 08:36 Donepezil HCl (Aricept) 5 mg HS PO 09/08/20 21:00 09/20/20 15:35 DC 09/19/20 20:46 Gabapentin (Neurontin) 100 mg TID PO 09/08/20 21:00 09/20/20 15:35 DC 09/20/20 08:35 Lisinopril (Prinivil) 10 mg DAILY PO 09/09/20 09:00 09/20/20 15:35 DC 09/20/20 08:36 Loperamide HCl (Imodium) 2 mg PRN Q2HRS PRN PO DIARRHEA 09/08/20 18:30 09/20/20 15:35 DC 09/19/20 20:49 Ropinirole HCl (Requip) 0.5 mg HS PO 09/08/20 21:00 09/20/20 15:35 DC 09/19/20 20:46 Sertraline HCl (Zoloft) 25 mg DAILY PO 09/09/20 09:00 09/20/20 15:35 DC 09/20/20 08:35 Acetaminophen (Tylenol) 650 mg PRN Q6HRS PRN PO MILD PAIN / TEMP > 100.3'F 09/08/20 18:30 09/20/20 15:35 DC Multi-Ingredient Ointment (Analgesic [place]) 1 keerthi PRN QID PRN TP MUSCLE PAIN 09/08/20 18:30 09/20/20 15:35 DC Al Hydroxide/Mg Hydroxide (Mylanta Plus Xs) 15 ml PRN AFTMEALHC PRN PO DYSPEPSIA 09/08/20 18:30 09/20/20 15:35 DC Magnesium Hydroxide (Milk Of Magnesia) 2,400 mg PRN QHS PRN PO CONSTIPATION 09/08/20 18:30 09/20/20 15:35 DC Nicotine (Nicoderm Cq 7mg Patch) 1 patch DAILY PRN TD SMOKING CESSATION 09/08/20 18:30 09/08/20 22:07 DC Nicotine Polacrilex (Nicorette Gum) 2 mg PRN Q1HR PRN BC SMOKING CESSATION 09/08/20 22:15 09/18/20 00:51 DC 09/13/20 15:28 Divalproex Sodium (Depakote Er) 500 mg QHS PO 09/09/20 21:00 09/12/20 22:01 DC 09/12/20 20:14 Risperidone (RisperDAL) 0.25 mg QHS PO 09/11/20 21:00 09/20/20 15:35 DC 09/19/20 20:46 Cefdinir (Omnicef) 300 mg BID PO 09/11/20 21:00 09/17/20 22:00 DC 09/17/20 19:59 Lactobacillus Rhamnosus (Culturelle) 1 cap BID PO 09/11/20 21:00 09/20/20 15:35 DC 09/20/20 08:34 Divalproex Sodium (Depakote Er) 1,000 mg QHS PO 09/13/20 21:00 09/16/20 17:47 DC 09/15/20 20:15 Nicotine (Nicoderm Cq 7mg Patch) 1 patch DAILY TD 09/13/20 19:00 09/15/20 08:28 DC 09/14/20 08:50 Nicotine (Nicoderm Cq 21mg Patch) 1 patch DAILY TD 09/15/20 09:00 09/20/20 15:35 DC 09/20/20 08:34 Trazodone HCl (Desyrel) 50 mg PRN DAILY PRN PO Sleep Aid 09/15/20 18:00 09/20/20 15:35 DC 09/19/20 20:46 Divalproex Sodium (Depakote Er) 1,500 mg QHS PO 09/16/20 21:00 09/20/20 15:35 DC 09/19/20 20:46 Ondansetron HCl (Zofran Odt) 4 mg PRN Q6HRS PRN PO NAUSEA/VOMITING 09/18/20 20:45 09/20/20 15:35 DC 09/18/20 20:47 I have reviewed the current psychotropics carefully including drug interactions. Risk benefit ratio favors no change other than as noted in my dictated progress note. Diagnosis: Problems: (1) Impulse control disorder, unspecified (2) Major depressive disorder with psychotic features (3) Dementia with behavioral disturbance (4) Anxiety disorder, unspecified LUISANA WAGNER MD Sep 21, 2020 09:10
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
== END 2020-09-20 13:30 | DRG 885 ==
LOC: GEROPSY 16:15
PROVIDERS: ADMIT Psychiatry & Neurology Psychiatry; ATTEND Psychiatry & Neurology Psychiatry
DX: F31.9 Bipolar disorder, unspecified (principal); F63.81 Intermittent explosive disorder; F03.91 Unspecified dementia, unspecified severity, with behavioral disturbance; I69.351 Hemiplegia and hemiparesis following cerebral infarction affecting right dominant side; E78.5 Hyperlipidemia, unspecified; I10 Essential (primary) hypertension; F41.9 Anxiety disorder, unspecified; G25.81 Restless legs syndrome; G89.29 Other chronic pain; Z87.820 Personal history of traumatic brain injury; Z79.899 Other long term (current) drug therapy; Z79.82 Long term (current) use of aspirin; Z72.0 Tobacco use
CPT/HCPCS: 36415; 70450; 71045; 80053; 80061; 80164; 81001; 82306; 82607; 83036; 83540; 83550; 83735; 84436; 84443; 84480; 84484; 85025; 85379; 86592; 87077; 87086; 87186; 93005; 99406; G0378; Q0162; U0003; 97530

== ENCOUNTER 2021-08-08 18:33 | Emergency (ER) | payer MEDICARE, BC ==
[~2021-08-08] VITALS: Ht 182.9 cm; Wt 93.7 kg
[~2021-08-08 18:33] MED LIST changes: +ACET325T21 PO; +CHOL4POW11 PO; +CYAN10002 IM; +DIVA500T17 PO; +FURO-68 PO; +IBUP400T18 PO; +MAG-124 PO; +MAGN24003 PO; +METH57CR17 TP; +NICO1PAT21 TP; +ONDA4TAB12 PO; +POTA10TA12 PO; +RISP0.253 PO; +TRAZ-120 PO
[2021-08-08 18:40] VITALS: BP 197/76
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
--- NOTE | 2021-08-08 19:15 | RAD ---
CT head without contrast. CT cervical spine without contrast. PQRS statement: CT scans at this facility use dose reduction including either automated exposure cont rol, iterative reconstructions, and /or weight based radiation dosing via mA and kV modification when appropriate to reduce radiation dose to as low as reasonably achievable. HISTORY: Head injury. Pain. COMPARISON: CT head September 07, 2020 CT head findings: Generalized brain atrophy. Ventriculomegaly related to generalized brain atrophy or due to normal pressure hydrocephalus, stable. Cavum septum. No obstructive hydrocephalus evident. Ch ronic right basal ganglia lacunar ischemic infarct is stable. Cerebral white matter hypoattenuation i s stable likely changes of chronic microvascular disease. No intracranial hemorrhage. No mass. No new infarct or acute ischemic change evident. Orbits, mastoids and bones are unremarkable. IMPRESSION: No acute intracranial abnormality. Stable exam. CT cervical spine findings: Craniocervical junction is intact. Cervical vertebral body height and ali gnment intact. No fracture of the cervical spine. Cervical disc height loss at several levels and sca ttered soft disc bulges, disc osteophytes and mild uncovertebral and facet spurring with spinal canal and neural foraminal stenoses at several levels. Apical pulmonary emphysema. Paraspinal tissues are unremarkable. IMPRESSION: No acute osseous injury of the cervical spine. Cervical disc disease. See above. Electronically signed by: Mega Looney MD (08/08/2021 7:12 PM) [facility]
== END 2021-08-08 19:45 | disposition home or self-care (01) ==
LOC: ER 18:33
DX: R51.9 Headache, unspecified (principal); F03.90 Unspecified dementia, unspecified severity, without behavioral disturbance, psychotic disturbance, mood disturbance, and anxiety; E78.00 Pure hypercholesterolemia, unspecified; I10 Essential (primary) hypertension; E78.5 Hyperlipidemia, unspecified; Z86.73 Personal history of transient ischemic attack (TIA), and cerebral infarction without residual deficits; Z88.1 Allergy status to other antibiotic agents; W06.XXXA Fall from bed, initial encounter; Y93.89 Activity, other specified; Y92.89 Other specified places as the place of occurrence of the external cause; Y99.8 Other external cause status
CPT/HCPCS: 70450; 72125; 99284